=== PATIENT | female | born 1990 | race Caucasian/White ===

== ENCOUNTER 2018-01-04 17:31 | Emergency (ER) | payer OTHER, SELFPAY ==
[2018-01-04 17:53] VITALS: BP 138/86; PULSE 82; RESP 20; TEMP 36.6; O2SAT 98; BMI 31.6
--- NOTE | 2018-01-04 18:05 | HMH.EDUTC ---
[facility] [place] Disposition Clinical Impression: Viral upper respiratory illness Disposition: Home, Self-Care Condition on Discharge: Good Instructions: DI for Viral Upper Respiratory Infection -- Adult Additional Instructions: Follow up with family doctor REturn if needed Over the counter Motrin or Tylenol as needed for pain or fever Follow up with family doctor if worsening of symptoms or no improvement Time of Disposition: 18:24 Medical Decision Making - Medical Records Medical records reviewed: Yes: I reviewed the patient's medical records. Vital Signs: 01/04/18 17:53 Temperature 98 F Temperature Source Temporal Artery Scan Pulse Rate [Right] 82 Respiratory Rate 20 Blood Pressure [Right Arm] 138/86 Blood Pressure Mean [Right Arm] 103 Blood Pressure Source [Right Arm] Automatic Cuff Blood Pressure Position [Right Arm] Sitting 02 Sat by Pulse Oximetry 98 Oxygen Delivery Method Room Air - Dillon Inquiry Pt receiving controlled substance: No Dillon was queried for this patient: No [facility] [place] HPI - General Stated complaint: fever,nausea,chills Mode of Arrival: Ambulatory Source of Information: Patient Limitations: No Limitations Description of Symptoms (Recalled from Triage Doc. by RN): CONGESTION, BODY ACHES, NAUSEA X2 DAYS HEENT Symptoms (Recalled from RN notes): Yes Resp Symptoms (Recalled from RN notes): No Skin Symptoms (Recalled from RN notes): No MS Symptoms (Recalled from RN notes): No Functional Status (Recalled from RN notes): N - History of Present Illness Provider Complaint: Patient states that her family doctor wanted her to come up here to the [facility] to get checked for flu and strep States that she has not felt well now for several day States that symptoms have continued to get worse State that she was worried because she had a small child at home and wanted make sure that she didn't have flu - Related Data Home Medications Medication Instructions Recorded Confirmed Atorvastatin Calcium [Atorvastatin 10 mg PO DAILY 01/04/18 01/04/18 10mg Tab] Escitalopram Oxalate 20 mg PO DAILY 01/04/18 01/04/18 Levothyroxine Sodium 25 mcg PO DAILY 01/04/18 01/04/18 [Levothyroxine 25mcg (0.025mg) Tab] Allergies Allergy/AdvReac Type Severity Reaction Status Date / Time No Known Allergies Allergy Verified 01/04/18 17:57 - Worker's Comp Is this a Worker's Comp case?: No [facility] History I have reviewed the patient's past medical history: Yes - *Social History Alcohol Intake: never - Psychiatric History Expresses thoughts of harming self/others: None Suicide Plan Description: No Plan ROS Obtained: Yes All systems reviewed & no additional complaints - Constitutional Constitutional: Reports chills, Reports fever(s) - ENT Ears, Nose, Mouth, and Throat: Reports nasal congestion, Reports sore throat Physical Exam - General General appearance: alert, in no apparent distress - Expanded ENT Exam Comment: Throat mildly red. no exudate - Respiratory Respiratory exam: Present: normal lung sounds bilaterally. Absent: respiratory distress - Cardiovascular Cardiovascular exam: Present: regular rate, normal rhythm. Absent: JVD - Neurological Exam Neurological exam: Present: alert, oriented X3
--- NOTE | 2018-01-04 18:16 | ED_ITS ---
[facility] [place] [facility] [place] Clinical Impression: Viral upper respiratory illness Disposition: Home, Self-Care Condition on Discharge: Good Instructions: DI for Viral Upper Respiratory Infection -- Adult Additional Instructions: Follow up with family doctor REturn if needed Over the counter Motrin or Tylenol as needed for pain or fever Follow up with family doctor if worsening of symptoms or no improvement Time of Disposition: 18:24 Medical Decision Making - Medical Records Medical records reviewed: Yes: I reviewed the patient's medical records. Vital Signs: 01/04/18 17:53 Temperature 98 F Temperature Source Temporal Artery Scan Pulse Rate [Right] 82 Respiratory Rate 20 Blood Pressure [Right Arm] 138/86 Blood Pressure Mean [Right Arm] 103 Blood Pressure Source [Right Arm] Automatic Cuff Blood Pressure Position [Right Arm] Sitting 02 Sat by Pulse Oximetry 98 Oxygen Delivery Method Room Air - Dillon Inquiry Pt receiving controlled substance: No Dillon was queried for this patient: No [facility] [place] [facility] [place]PI - General Stated complaint: fever,nausea,chills Mode of Arrival: Ambulatory Source of Information: Patient Limitations: No Limitations Description of Symptoms (Recalled from Triage Doc. by RN): CONGESTION, BODY ACHES, NAUSEA X2 DAYS HEENT Symptoms (Recalled from RN notes): Yes Resp Symptoms (Recalled from RN notes): No Skin Symptoms (Recalled from RN notes): No MS Symptoms (Recalled from RN notes): No Functional Status (Recalled from RN notes): N - History of Present Illness Provider Complaint: Patient states that her family doctor wanted her to come up here to the [facility] to get checked for flu and strep States that she has not felt well now for several day States that symptoms have continued to get worse State that she was worried because she had a small child at home and wanted make sure that she didn't have flu - Related Data Home Medications Medication Instructions Recorded Confirmed Atorvastatin Calcium [Atorvastatin 10 mg PO DAILY 01/04/18 01/04/18 10mg Tab] Escitalopram Oxalate 20 mg PO DAILY 01/04/18 01/04/18 Levothyroxine Sodium 25 mcg PO DAILY 01/04/18 01/04/18 [Levothyroxine 25mcg (0.025mg) Tab] Allergies Allergy/AdvReac Type Severity Reaction Status Date / Time No Known Allergies Allergy Verified 01/04/18 17:57 - Worker's Comp Is this a Worker's Comp case?: No [facility] History I have reviewed the patient's past medical history: Yes - *Social History Alcohol Intake: never - Psychiatric History Expresses thoughts of harming self/others: None Suicide Plan Description: No Plan ROS Obtained: Yes All systems reviewed & no additional complaints - Constitutional Constitutional: Reports chills, Reports fever(s) - ENT Ears, Nose, Mouth, and Throat: Reports nasal congestion, Reports sore throat Physical Exam - General General appearance: alert, in no apparent distress - Expanded ENT Exam Comment: Throat mildly red. no exudate - Respiratory Respiratory exam: Present: normal lung sounds bilaterally. Absent: respiratory distress - Cardiovascular Cardiovascular exam: Present: regular rate, normal rhythm. Absent: JVD - Neurological Exam Neurological exam: Present: alert, oriented X3
[2018-01-04 18:32] VITALS: BP 138/86; PULSE 82; RESP 18; TEMP 36.6
[2018-01-04 18:32] LABS: UTC Influenza A Antigen Negative (Negative); UTC Influenza B Antigen Negative (Negative)
== END 2018-01-04 18:33 | disposition home or self-care (01) ==
PROVIDERS: Emergency Provider Nurse Practitioner
DX: J06.9 Acute upper respiratory infection, unspecified (principal)
CPT/HCPCS: 87804; 99202

== ENCOUNTER → 2018-10-31 10:00 | Outpatient (CLI) | payer OTHER, SELFPAY ==
--- NOTE | 2018-10-31 10:01 | US_ITS ---
US transvaginal HISTORY: ITS.REASON: pelvic pain ORDERING PHYSICIAN: Guru Quintero MD PATIENT AGE: 28 years Comparison: None FINDINGS: UTERUS: The uterus measures 7.5 x 4 x 5 cm. The uterus is retroverted. Combined endometrial thickness is 12 mm upper normal. There are bilateral Essure devices present. RIGHT OVARY: 2.8 x 1.8 cm LEFT OVARY: 3.7 x 1.9 cm CUL-DE-SAC FLUID: Minimal cul-de-sac fluid OTHER FINDINGS: There is bilateral ovarian blood flow with no ovarian mass evident. Small follicles are noted IMPRESSION: Uterus is retroverted with endometrial thickness upper limits of normal with minimal amount of cul-de-sac fluid
== END ==
PROVIDERS: PCP Nurse Practitioner Family; Visit Provider Obstetrics & Gynecology
DX: R10.2 Pelvic and perineal pain (principal)
CPT/HCPCS: 76830

== ENCOUNTER 2020-02-28 11:00 | Outpatient (RCR) | payer OTHER, SELFPAY | END 2020-03-31 16:22 | disposition home or self-care (01) | LOC: PT.CARL 11:00 | PROVIDERS: PCP Nurse Practitioner Family; Visit Provider Nurse Practitioner Family | DX: M54.5 Low back pain (principal) | CPT/HCPCS: 97010; 97014; 97110; 97140; 97163; G0283 ==

== ENCOUNTER 2020-10-22 16:11 | Emergency (ER) | payer OTHER, SELFPAY ==
[2020-10-22 16:46] VITALS: BP 127/81; PULSE 79; RESP 17; TEMP 37.1; O2SAT 97; BMI 34.2
--- NOTE | 2020-10-22 17:16 | HMH.EDUTC ---
[facility] [place] Disposition Clinical Impression: Paronychia Disposition: Home, Self-Care Condition on Discharge: Good Instructions: Paronychia, DI for Paronychia, Amoxicillin and Clavulanic Acid Additional Instructions: 1. Soak the infected area in warm water with epson salt twice a day for 20 minutes. 2. After your initial soak, cut the hangnail off. ... 3. Rub Bacitracin on the affected area and around the nail, after healed may rub Vit E oil to prevent another hangnail. 4. Use a topical antibiotic cream on the infected hangnail for a few days Take oral antibiotics as prescribed Return if no improvement or any worsening of symptoms Straight to ER if any life threatening symptoms Prescriptions: Amoxicillin/Potassium Clav [Augmentin 875-125 Tablet] 1 tab PO Q12H 7 Days #14 tab Transmission Status: Pending to [id number] Bacitracin [Bacitracin Oint 0.9GM UDP] 1 each TP TID 10 Days #30 packet Transmission Status: Pending to [id number] Referrals: Sophie Culver [Primary Care Provider] - As needed Time of Disposition: 17:35 Medical Decision Making - Dillon Inquiry Pt receiving controlled substance: No Dillon was queried for this patient: No Vital Signs: 10/22/20 16:46 Temperature 98.7 F Temperature Source Oral Pulse Rate [Left] 79 Respiratory Rate 17 Blood Pressure [Right Arm] 127/81 Blood Pressure Mean [Right Arm] 96 Blood Pressure Source [Right Arm] Automatic Cuff Blood Pressure Position [Right Arm] Sitting 02 Sat by Pulse Oximetry 97 Oxygen Delivery Method Room Air Medical Decision Narrative: needle aspiration done and small amount of pus came from swollen area around fingernail on left 3rd finger, culture obtained and sent to lab [facility] [place] HPI - General Stated complaint: Possible infected middle finger r hand Time Seen by Provider: 10/22/20 17:16 Mode of Arrival: Ambulatory Source of Information: Patient Limitations: No Limitations Description of Symptoms (Recalled from Triage Doc. by RN): left 3rd digit pain and swollen. HEENT Symptoms (Recalled from RN notes): No Resp Symptoms (Recalled from RN notes): No Skin Symptoms (Recalled from RN notes): No MS Symptoms (Recalled from RN notes): Yes Functional Status (Recalled from RN notes): wnl - History of Present Illness Provider Complaint: Patient state that she has been having swelling and redness around her nail area on her left middle finger States that over the last week she has noticed it was red and swollen states that she tried to poke it and get stuff out but nothing come out state that today it was still red and swollen and she looked it up on the internet and it said she may need antibotics - Related Data Previous Rx's Medication Instructions Recorded Amoxicillin/Potassium Clav 1 tab PO Q12H 7 Days #14 tab 10/22/20 [Augmentin 875-125 Tablet] Bacitracin [Bacitracin Oint 0.9GM 1 each TP TID 10 Days #30 packet 10/22/20 UDP] Allergies Allergy/AdvReac Type Severity Reaction Status Date / Time No Known Allergies Allergy Verified 10/22/20 16:52 - Worker's Comp Is this a Worker's Comp case?: No Is this an H Worker's Comp?: No Is this a [place] Worker's Comp?: No [facility] History - Hepatitis A Screen Drug use history?: No High risk sexual behaviors?: No History of sexually transmitted infection?: No Currently employed?: No Childcare worker?: No Do you have indoor plumbing?: Yes Do you have electricity?: Yes Attestation statement:: This patient has been screened for Hepatitis A risk factors. I have reviewed the patient's past medical history: Yes Medical History: Reports:: Anxiety, Depression, Hyperlipidemia Denies:: Cancer, Diabetes Mellitus Type 1, Diabetes Mellitus Type 2, Internal Pacemaker, MRSA Other Medical History: Reports: Hypothyroidism Comment: ANXIETY. DEPRESSION. HYPERLIPIDEMIA Other Surgeries: Yes: Other. No: Pacemaker Amputation: No Fractures: No Comment: EAR SURGERIES, MANY TIMES FROM
[2020-10-22 18:09] VITALS: BP 127/81; PULSE 79; RESP 17; TEMP 37.1; O2SAT 97
== END 2020-10-22 18:10 | disposition home or self-care (01) ==
PROVIDERS: Emergency Provider Nurse Practitioner; PCP Nurse Practitioner Family
DX: L03.012 Cellulitis of left finger (principal); F41.8 Other specified anxiety disorders; E78.5 Hyperlipidemia, unspecified; E03.9 Hypothyroidism, unspecified
CPT/HCPCS: 87070; 87077; 87186; 87205; 99201

== ENCOUNTER → 2020-12-26 17:35 | Outpatient (CLI) | payer OTHER, SELFPAY ==
[2020-12-26 17:48] LABS: Basophils # 0.1 K/mm3 (0-0.2); Basophils % 0.9 % (0.1-2.0); Eosinophils # 0.2 K/mm3 (0.0-0.4); Eosinophils % 2.5 % (0.1-12.0); Hematocrit 45.1 % (37.0-47.0); Hemoglobin 15.1 g/dL (12.2-16.2); Lymphocytes # 2.2 K/mm3 (0.7-4.5); Lymphocytes % 33.4 % (10-50); Mean Corpuscular HGB Conc 33.5 g/dL (31.8-35.4); Mean Corpuscular Hemoglobin 29.1 pg (27.0-31.2); Mean Corpuscular Volume 86.9 fl (81-99); Mean Platelet Volume 7.9 fl (7.4-10.4); Monocytes # 0.3 K/mm3 (0.1-1.0); Monocytes % 4.6 % (1.7-9.3); Neutrophils # 3.9 K/mm3 (1.8-7.8); Neutrophils % 58.7 % (37.0-80.0); Platelet Count 312 K/mm3 (142-424); Red Blood Count 5.18 M/mm3 (4.20-5.40); Red Cell Distribution Width 13.3 % (11.5-17.5); White Blood Count 6.6 K/mm3 (4.8-10.8)
[2020-12-26 18:31] LABS: Alanine Aminotransferase 18 U/L (12-78); Albumin Level 4.8 g/dl (3.5-5.0); Albumin/Globulin Ratio 1.3 (1.1-1.8); Alkaline Phosphatase 93 U/L (38-126); Anion Gap 15.4 mEq/L (5-15); Aspartate Amino Transferase 27 U/L (14-36); Bilirubin,Total 0.5 mg/dl (0.2-1.3); Blood Urea Nitrogen 11 mg/dl (7-17); Carbon Dioxide 26 mmol/L (22.0-30.0); Chloride 103 mmol/L (98-107); Chol/HDL Ratio 4.7 (1-3.5); Cholesterol 227 mg/dl (140-200); Estimated Glomerular Filt Rate 74 ml/min (>60); GFR (African American) 89 ML/MIN (>60); Globulin 3.8 g/dL (1.3-3.2); Glucose 100 mg/dl (74-100); HDL Cholesterol 48 mg/dl (40-60); Potassium 4.4 mmoL/L (3.5-5.1); Sodium 140 mmol/L (136-145); Total Protein,Serum 8.6 g/dl (6.3-8.2); Triglycerides 135 mg/dl (30-150); VLDL Cholesterol 27 mg/dL (0-40)
[2020-12-26 18:41] LABS: Direct LDL Cholesterol 146.95 mg/dL (100-129)
[2020-12-26 18:49] LABS: T4 (Thyroxine) 12.2 ug/dl (5.53-11.0)
[2020-12-26 19:02] LABS: Thyroid Stimulating Hormone 1.84 uIU/mL (0.465-4.68)
[2020-12-26 19:31] LABS: 25-OH Vitamin D, Total 17.2 ng/mL (30-100)
== END ==
PROVIDERS: Visit Provider Emergency Medicine
DX: E03.9 Hypothyroidism, unspecified (principal); E55.9 Vitamin D deficiency, unspecified
CPT/HCPCS: 80053; 80061; 82306; 84436; 84443; 85025

== ENCOUNTER 2021-03-09 09:00 | Outpatient (RCR) | payer OTHER, SELFPAY ==
--- NOTE | 2021-03-02 16:27 | HMH.PTOPEV ---
PT Outpatient Evaluation Rehab PT Outpatient Evaluation Start: 03/02/21 15:48 Freq: Status: Active Protocol: Document 03/02/21 16:08 LAWRENCEBARTOLO (Rec: 03/02/21 16:27 SATHYA [id number]) Electronically Signed By Bashir Messer PT 03/02/21 16:08 Outpatient Therapy Subjective History Subjective History This is the initial Physical Therapy evaluation for Leonor Contreras. Pt is a 30 y/o female referred to PT for c/o LBP. Pt rpeorts she began having pain ~ 1 year ago w/ an insidious onset. Pt reports no trauma to lumbar area, and reports no complaints of radiculopathy. Pt has no c/o paresthesia, weakness, or incontinence of bowel/bladder. Chief Complaint Pain,Stiff Symptom Type Throb,Sharp Symptoms Relieved By Rest/Positioning Symptoms Aggravated By Standing,Bending/Stooping, Physical Activity,Twisting, Walking,Lifting Prior Functional Limitations None Current Functional Limitations Lifting,Housework,Standing, Squatting,Recreation Activity, Walking,Bending/Stooping Symptom Description Intermittent Level of pain today (0-10) 5 Pain scale - at its best (0-10) 0 Pain scale - at its worst (0-10) 9 Lumbopelvic Eval Posture Thoracic Spine Posture Standing Position Increased Kyphosis Lumbar Spine Posture Standing Position Increased Lordosis Palapation tenderness bilateral thoracic spinal tenderness No lumbar spinal tenderness Yes paraspinal tenderness Yes buttock tenderness No Lumbar/Sacral Palpation Findings Tenderness Accessory Movement L3 bilateral L4 bilateral L5 bilateral Range of Motion Lumbar Spine ROM Reason Not Measured Within Functional Limits Manual Muscle Test Bilateral Knee Extension Strength Grade 4 Good Knee Flexion Strength Grade 4 Good Hip Flexion Strength Grade 4 Good Ankle Dorsiflexion Strength Grade 2 Poor Gastronemius/Soleus Strength Grade 5 Normal Special Tests Forward Bending Test- Standing Negative Left,Negative Right Sciatic Nerve Tension Test Negative Left,Negative Right Unilateral Straight Leg Raise (Lasegue) Negative Left,Negative Right Test Sacroiliac Joint Compression Test Negative Left,Negative Right Outpatient Therapy Assessment Impairments Problems/Impairmments Palpation Tenderness,Impair
== END 2021-03-09 09:05 | disposition home or self-care (01) ==
LOC: PT 09:00
PROVIDERS: PCP Emergency Medicine; Visit Provider Emergency Medicine
DX: M54.9 Dorsalgia, unspecified (principal); M54.5 Low back pain
CPT/HCPCS: 97014; 97110; 97163; G0283

== ENCOUNTER 2021-05-22 11:24 | Emergency (ER) | payer OTHER, SELFPAY ==
[2021-05-22 11:28] VITALS: BP 135/88; PULSE 79; RESP 16; TEMP 36.6; O2SAT 100; BMI 34.2
[2021-05-22 11:44] LABS: UTC Strep Screen (Rapid) Positive (Negative)
[2021-05-22 11:47] VITALS: BP 132/86; PULSE 77; RESP 16; TEMP 36.8
--- NOTE | 2021-05-22 11:53 | HMH.EDUTC ---
[facility] [place] Clinical Impression: Strep throat Disposition: Home, Self-Care Condition on Discharge: Good Instructions: Strep Throat, DI for Strep Throat Additional Instructions: Drink plenty of fluids. Take tylenol or ibuprofen for pain or fever. Take the medications as directed. Follow up with your regular doctor. GO TO THE ER FOR ANY WORSENING SYMPTOMS Throw your tooth brush away and get a new one. Prescriptions: Albuterol Sulfate [Albuterol Sulfate Hfa] 2 puffs IH Q6HP PRN 30 Days #1 hfa.aer.ad PRN Reason: Shortness Of Breath [id number] Brompheniramine/Pseudoephed/Dm [Bromfed Dm Cough Syrup] 5 ml PO Q6HP PRN #240 syrup PRN Reason: Cough Transmission Status: [facility] Amoxicillin [Amoxicillin 500mg Tab] 500 mg PO TID 10 Days #30 tab Transmission Status: [facility] Fluticasone Propionate [Flonase 50mcg nasal spray 16gm] 1 spr NS BID 30 Days #1 bottle Transmission [facility]: [id number] Referrals: Kenneth Obrien MD [Primary Care Provider] - Time of Disposition: 12:02 Medical Decision Making - Medical Records Medical records reviewed: No: I reviewed the patient's medical records. - Dillon Inquiry Pt receiving controlled substance: No Vital Signs: 05/22/21 11:28 05/22/21 11:47 Temperature 97.9 F 98.2 F Temperature Source Oral Pulse Rate 77 Pulse Rate [Right] 79 Respiratory Rate 16 16 Blood Pressure 132/86 Blood Pressure [Right Arm] 135/88 Blood Pressure Mean [Right Arm] 103 02 Sat by Pulse Oximetry 100 - Lab Data Lab results reviewed: Yes: I reviewed the patient's lab results. Lab Results 05/22/21 11:41: Strep Scn Rapid Clinic Positive A [facility] [place] HPI - General Stated complaint: sore throat, drainage Time Seen by Provider: 05/22/21 11:53 Mode of Arrival: Ambulatory Source of Information: Patient Limitations: No Limitations Description of Symptoms (Recalled from Triage Doc. by RN): pt c/o fever, chills, sore throat, body aches and tightness in her lungs. pt is afebrile at this time. HEENT Symptoms (Recalled from RN notes): Yes (sore throat) Resp Symptoms (Recalled from RN notes): No Skin Symptoms (Recalled from RN notes): No MS Symptoms (Recalled from RN notes): No Functional Status (Recalled from RN notes): body aches and chills. - History of Present Illness Provider Complaint: She states that she has had a sore throat and chills for the past 2 days. - Related Data Previous Rx's Medication Instructions Recorded trazodone 50 mg tablet 50 mg PO HS #30 tab 12/26/20 cholecalciferol (vitamin D3) 25 25 mcg PO DAILY #90 cap 12/29/20 mcg (1,000 unit) capsule ergocalciferol (vitamin D2) 1,250 1,250 mcg PO WEEKLY #5 cap 12/29/20 mcg (50,000 unit) capsule atorvastatin 10 mg tablet 10 mg PO QHS #90 tab 02/24/21 meloxicam 15 mg tablet See Rx Instructions .ROUTE 03/20/21 .COMPLEX #90 tab clonazepam 0.5 mg tablet 0.5 mg PO BID #60 tab 03/23/21 diclofenac sodium 1 % topical gel 2 g TOPICAL QID #100 g 03/23/21 gabapentin 100 mg capsule 100 mg PO BID 21 Days #42 cap 03/23/21 gabapentin 300 mg capsule 300 mg PO BID 21 Days #42 cap 03/23/21 gabapentin 600 mg tablet 600 mg PO BID 42 Days #84 tab 03/23/21 lidocaine 5 % topical patch 1 patch TOPICAL DAILY #30 each 03/23/21 Albuterol Sulfate [Albuterol 2 puffs IH Q6HP PRN 30 Days #1 05/22/21 Sulfate Hfa] hfa.aer.ad Amoxicillin [Amoxicillin 500mg Tab] 500 mg PO TID 10 Days #30 tab 05/22/21 Brompheniramine/Pseudoephed/Dm 5 ml PO Q6HP PRN #240 syrup 05/22/21 [Bromfed Dm Cough Syrup] Fluticasone Propionate [Flonase 1 spr NS BID 30 Days #1 bottle 05/22/21 50mcg nasal spray 16gm] Allergies Allergy/AdvReac Type Severity Reaction Status Date / Time No Known Allergies Allergy Verified 05/22/21 11:42 - Worker's Comp Is this a Worker's Comp case?: No [facility] History - Hepatitis A Screen Drug use hist
== END 2021-05-22 12:08 | disposition home or self-care (01) ==
PROVIDERS: Emergency Provider Nurse Practitioner Family; PCP Emergency Medicine
DX: J02.0 Streptococcal pharyngitis (principal); F41.8 Other specified anxiety disorders; E78.5 Hyperlipidemia, unspecified
CPT/HCPCS: 87880; 99202; G0463

== ENCOUNTER 2021-06-18 09:01 | Emergency (ER) | payer OTHER, SELFPAY ==
[2021-06-18 09:07] VITALS: BP 143/80; PULSE 85; RESP 17; TEMP 36.6; O2SAT 99; BMI 34.2
[2021-06-18 09:42] LABS: UTC Strep Screen (Rapid) Negative (Negative)
--- NOTE | 2021-06-18 09:42 | HMH.EDUTC ---
[facility] [place] Disposition Clinical Impression: Viral upper respiratory illness Disposition: Home, Self-Care Condition on Discharge: Good Instructions: DI for Viral Upper Respiratory Infection -- Adult, Diarrhea, DI for COVID-19 (Suspected or Confirmed ), Coronavirus Disease 2019, Preventing the Spread of Coronavirus Discharge Instructions Additional Instructions: *Monitor Temp, Over the counter Motrin or Tylenol as directed/as needed Tylenol every 4 hours and Motrin every 6 hours (as long as your family doctor has told you that you can take it) for fever or pain. and straight to ER if unable to lower temp less than 101.0 after medication given *Warm salt water gargles may help to soothe the throat *Throat Lozenges *Warm fluids like tea with honey may help to soothe the throat *Sleep elevated *Humidifier/Vaporizer *Flonase 2 sprays in each nostril daily but be aware that it may take 2-3 days before you notice improvement Your throat swab was sent for culture. Those results are typically sent to your primary care. Be sure to follow up in 2-3 days with your family doctor/primary care physician if no improvement so they can review those result and treat if necessary. If you don?t have a primary care doctor, I recommend you get one but in the mean time, you will have to return to a walk in clinic Follow up IMMEDIATELY for new or worsening symptoms or no Noticeable improvement over the next 48-72 hours. 911 for difficulty breathing or swallowing You were tested for today for COVID19 your test result should be back in the next 24-48 hours, you may call to the [facility] to see if your test results are back in the next 48 hours [phone] [facility] hours are 9am-9pm You was given a handout with instructions for Self Quarantine and Self isolation for while you wait on test results and what to do if they are positive If you are positive the Health Dept will be contacting you also Drink extra fluids with and between meals. If you have difficulty drinking, try very small amounts of water or suck on ice chips. ? Avoid fruit juices, as these do not replace minerals and can actually increase diarrhea. ? Children and adults can use sports drinks to replenish electrolytes. Younger children and infants should use products formulated for children, like oral rehydration solutions. ? Eat food in small amounts and let your stomach recover. ? Get lots of rest. You may feel tired or weak. ? No greasy or fried foods for the next 24-48 hours BRAT diet Bananas Rice Apples and Paia ? Make sure to drink plenty of liquids ? Return if needed ? Straight to ER if any life threatening symptoms ? You was given an outpatient order for diarrhea panel, please collect specimen and bring back to outpatient lab then call back to the [facility] or follow up with family doctor for results ? Follow up with family doctor in the next 48-72 hours if no improvement or any worsening of symptoms Referrals: Kenneth Obrien MD [Primary Care Provider] - As needed Forms: Work/School Release Time of Disposition: 09:48 Medical Decision Making - Dillon Inquiry Pt receiving controlled substance: No Dillon was queried for this patient: No Vital Signs: 06/18/21 09:07 Temperature 97.8 F Temperature Source Oral Pulse Rate [Left] 85 Respiratory Rate 17 Blood Pressure [Right Arm] 143/80 H Blood Pressure Mean [Right Arm] 101 02 Sat by Pulse Oximetry 99 - Lab Data Lab results reviewed: Yes: I reviewed the patient's lab results. Lab Results 06/18/21 09:25: Strep Scn Rapid Clinic Negative Orders (Tests/Meds): ORDERS Category Date Time Status Covid-19 Nasal PCR ([facility] Routine Lab 06/18/21 09:36 Ordered Strep Screen Confirmation Stat Micro 06/18/21 09:25 Received [facility] [place] HPI - General Stated complaint: fever, runny nose, sore throat,diarrhea, sob Time Seen by Provider: 06/18/21 09:42 Mode of Arrival: Ambulatory Source of Information: Patient Limitations: No Limitations Description
[2021-06-18 10:09] VITALS: BP 139/82; PULSE 81; RESP 16; TEMP 36.6
== END 2021-06-18 10:09 | disposition home or self-care (01) ==
PROVIDERS: Emergency Provider Nurse Practitioner; PCP Emergency Medicine
DX: J06.9 Acute upper respiratory infection, unspecified (principal); F41.8 Other specified anxiety disorders; E78.5 Hyperlipidemia, unspecified; E03.9 Hypothyroidism, unspecified; Z20.822 Contact with and (suspected) exposure to COVID-19
CPT/HCPCS: 87880; 99203; G0463; U0003

== ENCOUNTER → 2021-07-01 07:57 | Outpatient (CLI) | payer OTHER, SELFPAY ==
--- NOTE | 2021-07-01 07:57 | US_ITS ---
PROCEDURE: US GALLBLADDER CLINICAL INDICATION: RUQP Right upper quadrant pain COMPARISON: No exams were available for comparison FINDINGS: Pancreas: Unremarkable pancreas Liver: Unremarkable. There is appropriate direction of blood flow within a non dilated portal vein. Right kidney: Unremarkable appearing. No hydronephrosis. Gallbladder: No stones are evident. There is no gallbladder wall. Minimal amount of sludge in the gallbladder. Thickening. Common duct is normal in diameter. IMPRESSION: Minimal sludge in the gallbladder otherwise negative right upper quadrant ultrasound Dictated by: Sunny Spencer MD 07/02/2021 20:21 Sunny Spencer MD in [place] 07/02/2021 20:21
== END ==
PROVIDERS: PCP Emergency Medicine; Visit Provider Emergency Medicine
DX: R10.11 Right upper quadrant pain (principal)
CPT/HCPCS: 76705

== ENCOUNTER → 2021-08-26 13:23 | Outpatient (CLI) | payer OTHER, SELFPAY ==
--- NOTE | 2021-08-26 13:28 | CA_ITS ---
APPROVED REPORT EXAM: Comprehensive 2D, Doppler, and color-flow Echocardiogram Special Effects Technician: Lakshmi Vargas CRT Ht: 5 ft 8 in Wt: 222lbs BSA: 2.14 BP: 132/80 mmHg Indications: Chest Pain, Murmur, Hyperlipidemia, Hypertension/HDD, Covid + // 2D Dimensions LVOT 1.94 cm (M/F) 1.5-2.5 LA Volume 35.60 mL LA Volume Index 16.60 mL/m2 (M/F) 16-34 M-Mode Dimensions RVDd 2.30 cm (0.9-2.6) LA Diam 2.86 cm (1.9-4.0) LVDd 5.57 cm (3.5-5.7) Ao Diam 3.36 cm (2.0-3.7) LVDs 3.87 cm (3.5-5.7) IVSd 1.07 cm (0.6-1.1) PWd 0.40 cm (0.6-1.1) EF (Teich) 57.40% FS 30.50% EDV (Teich) 151.80 mL TAPSE 1.79 (<1.7) ESV (Teich) 64.70 mL LV Diastology E Decel Time 150.00 (160-240 msec) E/A Ratio 1.08 MED E' 6.90 (< 7 cm/sec) MED A' 11.70 cm/s E'/MED E' Ratio 11.20 (>14) LAT E' 12.10 (<10 cm/sec) LAT A' 8.60 cm/s E/LAT E' Ratio 6.39 (>14) Aortic Valve AO Peak GR. 7.10 mmHg Mitral Valve MV E Max Demetrius. 77.00 (40-130 cm/s) MV A Velocity 72.00 (40-130 cm/s) E/A Ratio 1.08 MV Decel. Time 150.00 (160-240 ms) MV PHT 44.00 ms Pulmonary Valve PV Peak Velocity 102.00 (50-150 cm/s) Tricuspid Valve TR P. Velocity 166.00 cm/s RAP Estimate 10.00 mmHg RVSP 21.10 mmHg Left Ventricle Left atrium is normal size, left ventricle is normal size, there is no concentric left ventricular hypertrophy, visually estimated ejection fraction 55% with no regional wall motion abnormality, diastolic parameters are within normal range. Right Ventricle Right atrium and right ventricle are normal size and contractility. Aortic Valve Aortic valve is grossly normal, there is no aortic stenosis or aortic insufficiency. Mitral Valve Mitral valve grossly normal, there is trace mitral regurgitation. Tricuspid Valve Tricuspid grossly normal, there is trace tricuspid regurgitation, calculated right ventricular systolic pressure is within normal range. Pulmonic Valve Pulmonic valve is poorly visualized. Great Vessels Aortic root is normal size. Inferior vena cava is normal size with normal inspiratory collapse. Pericardium No significant pericardial effusion noted. Conclusion 1. Normal left ventricular size, preserved left ventricular systolic function, visually estimated ejection fraction 55% with no regional wall motion abnormality, diastolic parameters are within normal range. 2. Trace mitral and tricuspid regurgitation, calculated right ventricular systolic pressure within normal range. 3. No significant pericardial effusion noted. 4. Inferior vena cava is normal size with normal inspiratory collapse. Electronically signed by : Vincent Duran MD 08/27/2021 14:30:04
== END ==
PROVIDERS: PCP Emergency Medicine; Visit Provider Emergency Medicine
DX: R01.1 Cardiac murmur, unspecified (principal)
CPT/HCPCS: 93306

== ENCOUNTER 2021-09-09 18:51 | Emergency (ER) | payer OTHER, SELFPAY ==
[2021-09-09 20:23] VITALS: BP 00/00; PULSE 0; RESP 0; TEMP -17.7; TEMP 0; O2SAT 0
== END 2021-09-09 20:28 | disposition left against medical advice (07) ==
PROVIDERS: Emergency Provider Student in an Organized Health Care Education/Training Program; PCP Emergency Medicine
DX: Z53.21 Procedure and treatment not carried out due to patient leaving prior to being seen by health care provider (principal)
CPT/HCPCS: 99211

== ENCOUNTER → 2021-09-14 09:11 | Outpatient (CLI) | payer OTHER, SELFPAY | PROVIDERS: Visit Provider Surgery | DX: Z01.812 Encounter for preprocedural laboratory examination (principal); Z11.52 Encounter for screening for COVID-19; Z13.810 Encounter for screening for upper gastrointestinal disorder | CPT/HCPCS: C9803; U0003; U0005 ==

== ENCOUNTER 2021-09-16 09:31 | Day surgery (SDC) | payer OTHER, SELFPAY ==
[2021-09-14 09:17] VITALS: BMI 34.7
[2021-09-16] VITALS (7 sets, daily range): BP systolic 100–123; BP diastolic 64–73; PULSE 66–78; RESP 14–18; TEMP 36.3–36.4; O2SAT 96–100
--- NOTE | 2021-09-16 09:47 | HMH.ANESCL ---
[facility] Anesthesia Checklist - Patient Identification Patient Identification: Arm Band - Structural Data Admitted From: Home Planned Operative Procedure/s: EGD Consent for Planned Operative Procedure(s) Verified: Yes - NPO Status Verified Time NPO: 00:00 - Airway Assessment C-Spine Mobility Assessed: Yes TMJ Mobility Assessed: Yes Dentition: Edentulous - Neurological Assessment Level of Consciousness: Awake Hx Seizures: No Numbness or tingling in extremities: No - Anesthesia Plan Anesthesia Risk discussed: Yes Anesthesia Plan: Verified ASA Class: II Anesthesia Type: MAC [facility] History I have reviewed the patient's past medical history: Yes Medical History: Reports:: Anxiety, Depression, Hyperlipidemia Denies:: Cancer, Diabetes Mellitus Type 1, Diabetes Mellitus Type 2, Internal Pacemaker, MRSA *Have you ever received a pneumonia vaccine?: No *Have you received a flu vaccine this season?: No Other Medical History: Reports: Hypothyroidism Anesthesia experience/problems:: None Laterality Cases: Bilateral: Myringotomy (Ear Tubes) Other Surgeries: Yes: Other. No: Pacemaker Amputation: No Fractures: No - *Social History Last grade of school completed: High school graduate Smoking Status: Never smoker Alcohol Intake: never Alcohol Intake Frequency:: other Substance Use Type: denies use *Occupational Status:: unemployed Housing: house Household Members: spouse, children *Travel in the last 8 weeks: None - Psychiatric History Pschychiatric History:: Reports:: Anxiety, Depression Family Hx:: No significant family history
[2021-09-16 09:59] LABS: Urine Pregnancy, HCG Qual. Negative (Negative)
--- NOTE | 2021-09-16 10:30 | HMH.SCOPE ---
- Procedure: Date: 09/16/21 Patient Date of :: 1990 Procedure Performed:: Esophagogastroduodenoscopy with biopsies Indications:: Patient is a 30-year-old female from [place] with history of anxiety, hyperlipidemia, pain referred by Dr. Obrien for EGD. She states that she has a very longstanding history of reflux type symptoms and heartburn . She describes relatively frequent burning in the throat and chest area. She states I keep heartburn . This is however been progressive recently. She did undergo an ultrasound of the gallbladder on 07/02/2021 which revealed minimal sludge. She has had some difficulty swallowing pills. She does not seem to have any dysphagia with food however. She has been started on a medication which says may help somewhat occasionally but some days it does not seem to have any effect at all. She was sent for EGD. Performing Provider:: Geovanni Ruiz MD Referring Provider:: Chapito Obrien MD Sedation:: MAC sedation Procedure:: Patient was taken to endoscopy procedure room. She was positioned in lateral decubitus position. Adequate intravenous sedation was achieved with anesthesia titration of propofol. Olympus endoscope was inserted via the oropharynx. Esophagus was cannulated. Endoscope was advanced. Esophagus appeared overall relatively unremarkable. Gastroesophageal junction was encountered at approximately 35 cm from the incisors. Stomach was cannulated and insufflated. Retroflexion revealed no evidence of any hiatal hernia. She had a couple of areas of minor focal gastritis. Pylorus was traversed. Duodenal bulb and duodenal sweep appeared unremarkable. Endoscope was withdrawn into the gastric lumen. Gastric antral mucosal biopsies obtained for CLOtest for H. pylori. A couple biopsies were obtained of the areas of punctate to gastritis. A Hemoclip was deployed in the prepyloric location to ensure hemostasis. Endoscope was withdrawn into the distal esophagus. There was some minor inflammation at the gastroesophageal junction and biopsy was obtained. Biopsies were obtained of the distal esophagus to rule out microscopic esophagitis. Endoscope was withdrawn. Findings:: Overall relatively unremarkable upper endoscopy. Gastroesophageal junction at 35 cm from the incisors 2 tiny punctate areas of minor gastropathy/gastritis Minimal evidence of focal esophagitis of the gastroesophageal junction, biopsied Recommendations:: Plan to follow-up on histopathology. It is possible that some of her symptoms are functional anxiety related. Complications:: None immediately apparent Estimated blood obtained (mL): 3
== END 2021-09-16 11:26 | disposition home or self-care (01) ==
LOC: OUTP 09:32
PROVIDERS: PCP Emergency Medicine; Visit Provider Surgery
PROC: 0DJ08ZZ Inspection of Upper Intestinal Tract, Via Natural or Artificial Opening Endoscopic (ICD-10-PCS; CPT 43235; principal; 2021-09-16 10:30)
DX: K31.9 Disease of stomach and duodenum, unspecified (principal); K20.80 Other esophagitis without bleeding; F41.9 Anxiety disorder, unspecified; F32.9 Major depressive disorder, single episode, unspecified; E78.5 Hyperlipidemia, unspecified; E03.9 Hypothyroidism, unspecified; Z96.22 Myringotomy tube(s) status; Z79.899 Other long term (current) drug therapy
CPT/HCPCS: 43239; 81025; 87339; J2704

== ENCOUNTER 2022-02-16 20:12 | Emergency (ER) | payer OTHER, SELFPAY ==
[2022-02-16 21:40] LABS: UTC Influenza A Antigen Positive (Negative)
[2022-02-16 21:41] VITALS: PULSE 78; RESP 21; TEMP 37; O2SAT 99; BMI 35.2
[2022-02-16 21:41] LABS: UTC Influenza B Antigen Negative (Negative)
--- NOTE | 2022-02-16 21:46 | HMH.EDUTC ---
[facility] [place] Clinical Impression: Influenza Disposition: Home, Self-Care Condition on Discharge: Good Instructions: Influenza, DI for Influenza -- Adult Additional Instructions: ? Start Tamiflu today if you are going to take it. Discussed risk and possible benefits. ? Too late to start Tamiflu. Most effective when started within 48 hours of symptoms onset ? Lots of rest ? Increase Fluids water, Gatorade, powerade, pedialyte,if /toddler/child ? Alternate Tylenol and / or ibuprofen as discussed for fever, aches, chills Follow up IMMEDIATELY with your family doctor for new or worsening Symptoms OR no noticeable improvement over the next 48-72 hours, 911 for difficulty or breathing ? You or your child area contagious until no fever, aches, chills for 24 hours with medication for symptoms ? Help Prevent the spread of influenza: ? Wash your hands often. Use soap and water. Wash your hands after you use the bathroom, change a child's diapers, or sneeze. Wash your hands before you prepare or eat food. Use gel hand cleanser that has 60% alcohol, when soap and water are not available. Do not touch your eyes, nose, or mouth unless you have washed your hands first. ? Cover your mouth when you sneeze or cough. Cough into a tissue or the bend of your arm. If you use a tissue, throw it away immediately and wash your hands. ? Clean shared items with a germ-killing yarn cleaner. Clean table surfaces, doorknobs, and light switches. Do not share towels, silverware, and dishes with people who are sick. Wash bed sheets, towels, silverware, and dishes with soap and water. ? Wear a mask over your mouth and nose if you are sick. The face mask may help protect others from becoming infected with the flu. Wear the mask when in common areas of your home or if you seek care with a healthcare provider. ? Stay away from others if you are sick. Stay at home until 24 hours after your fever and symptoms are gone. Prescriptions: Oseltamivir Phosphate [Tamiflu 75mg Capsule] 75 mg PO BID #10 cap Transmission Status: Pending to [facility] Referrals: Kenneth Obrien MD [Primary Care Provider] - As needed Time of Disposition: 22:03 Medical Decision Making - Dillon Inquiry Pt receiving controlled substance: No [place] was queried for this patient: No Vital Signs: 02/16/22 21:41 02/16/22 21:51 Temperature 98.6 F 98.6 F Temperature Source Oral Pulse Rate 78 Pulse Rate [Right] 78 Respiratory Rate 21 21 Blood Pressure 140/81 02 Sat by Pulse Oximetry 99 - Lab Data Lab results reviewed: Yes: I reviewed the patient's lab results. Lab Results 02/16/22 21:14: Influenza Type A Ag Positive A, Influenza Type B Ag Negative [facility] - General Stated complaint: sore throat, body aches, congestion Time Seen by Provider: 02/16/22 21:46 Mode of Arrival: Ambulatory Source of Information: Patient Limitations: No Limitations Description of Symptoms (Recalled from Triage Doc. by RN): pt c/o body aches, sore throat, nasal drainage/congestion x3 days. HEENT Symptoms (Recalled from RN notes): Yes Resp Symptoms (Recalled from RN notes): No Skin Symptoms (Recalled from RN notes): No MS Symptoms (Recalled from RN notes): No Functional Status (Recalled from RN notes): wnl - History of Present Illness Provider Complaint: Patient states that she baby sit a child over the weekend that just tested postive for the flu States that yesterday she started feeling bad and was having body aches, chills, nasal congestion and scratchy throat so today she was still not feeling well so she came in - Related Data Previous Rx's Medication Instructions Recorded famotidine 40 mg tablet 40 mg PO DAILY #30 tab 10/05/21 sucralfate 1 gram tablet 1 g PO QID #90 tab 10/19/21 atorvastatin 10 mg tablet 10 mg PO DAILY #90 tab 11/25/21 cholecalciferol (vitamin D3) 1,250 1,250 mcg PO WEEKLY #12 cap 11/25/21 mcg (50,000 unit) capsule cholecalciferol (vitamin D3) 25 25 mc
[2022-02-16 21:51] VITALS: BP 140/81; PULSE 78; RESP 21; TEMP 37
== END 2022-02-16 22:07 | disposition home or self-care (01) ==
PROVIDERS: Emergency Provider Nurse Practitioner; PCP Emergency Medicine
DX: J10.1 Influenza due to other identified influenza virus with other respiratory manifestations (principal); F41.8 Other specified anxiety disorders; E78.5 Hyperlipidemia, unspecified; Z79.899 Other long term (current) drug therapy
CPT/HCPCS: 87804; 99212; G0463

== ENCOUNTER → 2022-03-08 08:40 | Outpatient (CLI) | payer OTHER, SELFPAY ==
[2022-03-08 15:13] LABS: Amphetamine/Metha Screen,Urine Negative ng/ml (<1000)
[2022-03-08 15:15] LABS: Barbiturates Screen,Urine Negative ng/ml (<200)
[2022-03-08 15:16] LABS: Benzodiazepines Screen,Urine Negative ng/ml (<200)
[2022-03-08 15:17] LABS: Cannabinoid Screen,Urine Positive ng/ml (<50); Methadone Screen,Urine Negative ng/ml (<300)
[2022-03-08 15:18] LABS: Cocaine Screen,Urine Negative ng/ml (<300); Opiate Screen,Urine Negative ng/ml (<300)
[2022-03-08 15:20] LABS: Phencyclidine Screen,Urine Negative ng/ml (<25)
== END ==
PROVIDERS: Visit Provider Emergency Medicine
DX: Z79.899 Other long term (current) drug therapy (principal)
CPT/HCPCS: 80305

== ENCOUNTER → 2022-05-25 20:49 | Outpatient (CLI) | payer OTHER, SELFPAY ==
[2022-05-25 21:15] LABS: Adenovirus,PCR Not Detected (NotDetected); Bordetella Pertussis Not Detected (NotDetected); Chlamydophila Pneumoniae, PCR Not Detected (NotDetected); Coronavirus 19, PCR Not Detected (NotDetected); Coronavirus 229E Not Detected (NotDetected); Coronavirus NL63 Not Detected (NotDetected); Coronavirus OC43 Not Detected (NotDetected); Coronovirus HKU1,PCR Not Detected (NotDetected); Human Metapneumovirus Not Detected (NotDetected); Influenza A, PCR Not Detected (NotDetected); Influenza AH1, 2009 Not Detected (NotDetected); Influenza AH1, PCR Not Detected (NotDetected); Influenza AH3,PCR Not Detected (NotDetected); Influenza B, PCR Not Detected (NotDetected); Mycoplasma Pneumoniae, PCR Not Detected (NotDetected); Parainfluenza 1, PCR Not Detected (NotDetected); Parainfluenza 2, PCR Not Detected (NotDetected); Parainfluenza 3, PCR Not Detected (NotDetected); Parainfluenza 4, PCR Not Detected (NotDetected); Respiratory Syncytial Virus Not Detected (NotDetected); Rhinovirus/Enterovirus Not Detected (NotDetected)
== END ==
PROVIDERS: PCP Nurse Practitioner Family; Visit Provider Nurse Practitioner Family
DX: Z20.822 Contact with and (suspected) exposure to COVID-19 (principal); J02.9 Acute pharyngitis, unspecified; R05.8 Other specified cough
CPT/HCPCS: 87581; 87632; 87798; C9803; U0003; U0005

== ENCOUNTER 2022-09-23 20:21 | Emergency (ER) | payer OTHER, SELFPAY ==
[2022-09-23 20:23] VITALS: BP 166/102; PULSE 79; RESP 18; TEMP 36.5; O2SAT 100; BMI 35.2
[2022-09-23 20:45] LABS: Microscopic, Urine URINE MICROSCOPIC (MICROSCOPIC)
[2022-09-23 20:51] LABS: Basophils # 0.1 K/mm3 (0-0.2); Basophils % 1.4 % (0.1-2.0); Eosinophils # 0.2 K/mm3 (0.0-0.4); Eosinophils % 1.9 % (0.1-12.0); Hematocrit 43.1 % (37.0-47.0); Lymphocytes % 37.7 % (10-50); Mean Corpuscular HGB Conc 32.5 g/dL (31.8-35.4); Mean Corpuscular Hemoglobin 28.8 pg (27.0-31.2); Mean Corpuscular Volume 88.8 fl (81-99); Monocytes # 0.3 K/mm3 (0.1-1.0); Monocytes % 3.8 % (1.7-9.3); Neutrophils # 4.3 K/mm3 (1.8-7.8); Neutrophils % 55.2 % (37.0-80.0); Platelet Count 262 K/mm3 (142-424); Red Blood Count 4.85 M/mm3 (4.20-5.40); Red Cell Distribution Width 13.5 % (11.5-17.5); White Blood Count 7.9 K/mm3 (4.8-10.8)
[2022-09-23 21:00] LABS: Bilirubin,Urine Negative (Negative); Blood, Urine 3+ (Negative); Glucose,Urine (UA) Negative (Negative); Ketones,Urine Negative (Negative); Leukocyte Esterase,Urine Negative (Negative); Nitrate,Urine Negative (Negative); Protein,Urine 1+ (Negative); Specific Gravity, Urine >= 1.030 (1.005-1.030); Urobilinogen,Urine 0.2 EU/dl (0.2)
[2022-09-23 21:01] LABS: Chloride 103 mmol/L (98-107); Potassium 3.4 mmoL/L (3.5-5.1); Sodium 143 mmol/L (136-145)
[2022-09-23 21:03] LABS: Appearance,Urine Slightly Cloudy (Clear); Color,Urine Amber (Yellow)
[2022-09-23 21:03] LABS: Alanine Aminotransferase 20 U/L (12-78); Aspartate Amino Transferase 25 U/L (14-36); Blood Urea Nitrogen 8 mg/dl (7-17); Creatinine Clearance Estimated 146 mL/min (50-200); Estimated Glomerular Filt Rate 73 ml/min (>60); GFR (African American) 88 ML/MIN (>60)
[2022-09-23 21:04] LABS: Albumin Level 4.8 g/dl (3.5-5.0); Albumin/Globulin Ratio 1.3 (1.1-1.8); Alkaline Phosphatase 89 U/L (38-126); Bilirubin,Total 0.4 mg/dl (0.2-1.3); Calcium 9.9 mg/dl (8.4-10.2); Carbon Dioxide 25 mmol/L (22.0-30.0); Globulin 3.8 g/dL (1.3-3.2); Glucose 98 mg/dl (74-100); Lipase 48 U/L (23-300); Total Protein,Serum 8.6 g/dl (6.3-8.2)
[2022-09-23 21:06] LABS: Anion Gap 18.4 mEq/L (5-15)
--- NOTE | 2022-09-23 21:10 | CT_ITS ---
PROCEDURE INFORMATION: Exam: CT Abdomen And Pelvis With Contrast Exam date and time: 09/23/2022 9:32 PM Age: 31 years old Clinical indication: Abdominal pain; Additional info: Abd pain, bloody stools TECHNIQUE: Imaging protocol: Computed tomography of the abdomen and pelvis with contrast. Radiation optimization: All CT scans at this facility use at least one of these dose optimization techniques: automated exposure control; mA and/or kV adjustment per patient size (includes targeted exams where dose is matched to clinical indication); or iterative reconstruction. Contrast material: ISOVUE; Contrast volume: 75 ml; Contrast route: IV; COMPARISON: US GALLBLADDER 07/01/2021 8:35 AM FINDINGS: Liver: Normal. No mass. Gallbladder and bile ducts: Normal. No calcified stones. No ductal dilation. Pancreas: Normal. No ductal dilation. Spleen: Normal. No splenomegaly. Adrenal glands: Normal. No mass. Kidneys and ureters: Left hydronephrosis secondary to a 2 mm calculus in the proximal ureter. Low attenuation renal lesions measuring up to 7 mm in diameter are incompletely characterized, but are likely cysts. No followup imaging is warranted. Stomach and bowel: Unremarkable. No obstruction. No mucosal thickening. Appendix: Unremarkable appendix. Intraperitoneal space: Amount of free fluid in the pelvis, which is likely physiologic. Vasculature: Unremarkable. No abdominal aortic aneurysm. Lymph nodes: Unremarkable. No enlarged lymph nodes. Urinary bladder: Unremarkable as visualized. Reproductive: Bilateral tubal ligation. There is a recently ruptured left ovarian dominant follicle. Bones/joints: Unremarkable. No acute fracture. Soft tissues: Tiny fat containing umbilical hernia. Other findings: Stigmata of old granulomatous disease. IMPRESSION: 1. Left hydronephrosis secondary to a 2 mm calculus in the proximal ureter. 2. There is a recently ruptured left ovarian dominant follicle. COMMENTS: Consistent with the [employer]'s Incidental Findings Committee white paper (J Am Joaquin Radiol 2018): Any incidental renal lesion less than 1 cm or classified as too small to characterize, or any incidental cystic renal lesion characterized as simple-appearing, is likely benign. No follow-up imaging is recommended for these lesions per consensus recommendations based on imaging criteria.
[2022-09-23 21:20] LABS: HCG Qualitative, Serum Negative (Negative)
[2022-09-23 22:07] LABS: RBC,Urine TNTC #/hpf (0-3); WBC,Urine Occasional #/hpf (0-3)
--- NOTE | 2022-09-23 22:26 | PC.NURSE ---
Rechecked pt condition. Pt complains of pain. notified.
[2022-09-23 22:30] VITALS: BP 129/74; PULSE 69; O2SAT 100
--- NOTE | 2022-09-23 22:47 | US_ITS ---
PROCEDURE INFORMATION: Exam: US Duplex Artery or Vein of the Abdominal and/or Reproductive Organs, Limited Ovaries Exam date and time: 09/23/2022 11:18 PM Age: 31 years old Clinical indication: Abdominal pain; Lower abdomen; Additional info: Lower abd pain, ovarian follicle left TECHNIQUE: Imaging protocol: Real-time duplex ultrasound scan of the arterial or venous flow with garza scale, color Doppler flow and spectral waveform analysis with image documentation. Limited duplex exam focused on the ovaries. Duplex exam was performed to evaluate for torsion and other vascular conditions. COMPARISON: CT ABDOMEN PELVIS W CON 09/23/2022 9:32 PM FINDINGS: Right ovary/adnexa: Unremarkable right ovarian arterial waveforms. Left ovary/adnexa: Unremarkable left ovarian arterial waveforms. IMPRESSION: No evidence of ovarian torsion. PROCEDURE INFORMATION: Exam: US Pelvis, Transvaginal Exam date and time: 09/23/2022 11:18 PM Age: 31 years old Clinical indication: Abdominal pain; Lower abdomen; Additional info: Lower abd pain, ovarian follicle left TECHNIQUE: Imaging protocol: Real-time transvaginal pelvic ultrasound with image documentation. Transvaginal imaging was used for better evaluation of the endometrium, adnexa, and/or cervix. COMPARISON: TRANVAG US transvaginal 10/31/2018 10:28 AM FINDINGS: Uterus: The endometrium is 12 mm in thickness. Uterus measures 8.1 x 3.9 x 4.9 cm. Right ovary/adnexa: The right ovary measures 3.2 x 2.1 x 1.8 cm. Unremarkable right ovarian arterial waveforms. Left ovary/adnexa: The left ovary measures 4.4 x 2.3 x 2.1 cm. Unremarkable left ovarian arterial waveforms. Intraperitoneal space: There is a small amount of free fluid in the pelvis. IMPRESSION: There is a small amount of free fluid in the pelvis. In correlation with CT images, this is most likely due to a recently ruptured left ovarian dominant follicle.
--- NOTE | 2022-09-23 22:49 | PC.NURSE ---
paged securities trader lobby concierge for US at this time
--- NOTE | 2022-09-23 23:13 | PC.NURSE ---
Pt gone to RAD for U/S
--- NOTE | 2022-09-23 23:14 | HMH.EDABDPAI ---
Discharge Plan Disposition Patient Disposition: Home, Self-Care Condition: Good Prescriptions Prescriptions: New ketorolac 10 mg tablet 10 mg PO Q8H 5 Days Qty: 15 0RF tamsulosin [Flomax] 0.4 mg capsule 0.4 mg PO DAILY Qty: 30 0RF ondansetron 4 mg tablet,disintegrating 4 mg PO DAILY Qty: 30 0RF No Action gabapentin 600 mg tablet 600 mg PO TID Qty: 90 2RF clonazepam 0.5 mg tablet 0.5 mg PO TID Qty: 90 2RF famotidine [Pepcid] 40 mg tablet 40 mg PO DAILY Qty: 30 5RF cholecalciferol (vitamin D3) 1,250 mcg (50,000 unit) capsule 1,250 mcg PO WEEKLY Qty: 12 0RF cholecalciferol (vitamin D3) 25 mcg (1,000 unit) capsule 25 mcg PO DAILY Qty: 90 0RF sucralfate 1 gram tablet 1 g PO QID Qty: 90 2RF atorvastatin 10 mg tablet 10 mg PO DAILY Qty: 90 2RF albuterol sulfate 90 mcg/actuation HFA aerosol inhaler 1 inh IH QID PRN (Reason: shortness of breath or wheezing) Qty: 8.5 0RF Referrals Follow up/Referrals: Marva Abel MD [Referring] - See instructions (Ruptured Cyst and concern for possible PCOS ) Layne Ramirez MD [Primary Care Provider] - See instructions José Miguel Quiñones MD [Staff Physician] - See instructions (kidney stone ) Activity Restrictions/Add. Instructions Additional Instructions/Restrictions: Please follow-up with your primary care physician in the next 2 to 3 days for further management. You have also been referred to urology given your 2 mm kidney stone. Please take Toradol and Flomax as prescribed. You have also been referred to gynecology given concern for ruptured cyst. Please return to the emergency department for any concerning symptoms or worsening pain. Clinical Impressions Clinical Impression: Ovarian cyst rupture, Kidney stone Instructions Patient Instructions: DI for Kidney Stones, DI for Ovarian Cyst Print Language Print Language: Khmer Discharge ED Provider: Layne Ramirez Abdominal Pain HPI General Chief Complaint: Abdominal Pain Stated Complaint: abd pain, vomitting Time Seen by Provider: 09/23/22 23:14 Mode of Arrival: Ambulatory Source of Information: Patient Limitations: No Limitations Description of Symptoms (Recalled from ER Triage Doc. by RN): pt c/o LLQ pain v/d and bright red blood in stool that started yesterday History of Present Illness HPI narrative: Mrs. Greer is a 31-year-old female with no significant past medical history presenting to the emergency department with left sided abdominal pain which started acute onset yesterday evening. Patient describes left mid quadrant pain which radiates into the groin. She also reports bright red blood in her stool yesterday which has greatly improved. Does report constipation which is now turned into diarrhea. Denies any vaginal discharge. Last menstrual 2 weeks prior. Denies any cough, fevers or other infectious-like symptoms. Denies any recent trauma to the abdomen. MD complaint: abdominal pain Onset (ago): day(s) Consistency: intermittent Severity: moderate Quality: cramping Radiation: suprapubic Relieving factors: nothing Exacerbating factors: nothing Related Data Previous Rx's Medication Instructions Recorded sucralfate 1 gram tablet 1 g PO QID #90 tabs 10/19/21 cholecalciferol (vitamin D3) 1,250 1,250 mcg PO WEEKLY #12 caps 05/25/22 mcg (50,000 unit) capsule cholecalciferol (vitamin D3) 25 25 mcg PO DAILY #90 caps 05/25/22 mcg (1,000 unit) capsule famotidine 40 mg tablet (Pepcid) 40 mg PO DAILY #30 tabs 05/25/22 atorvastatin 10 mg tablet 10 mg PO DAILY #90 tabs 06/02/22 albuterol sulfate 90 mcg/actuation 1 inh inhalation QID PRN shortness 07/08/22 aerosol inhaler of breath or wheezing #8.5 grams clonazepam 0.5 mg tablet 0.5 mg PO TID mood #90 tabs 07/23/22 gabapentin 600 mg tablet 600 mg PO TID Pain #90 tabs 07/23/22 ketorolac 10 mg tablet 10 mg PO Q8H 5 days #15 tabs 09/24/22 ondansetron 4 mg disintegrating 4 mg PO DAILY #30 tabs 09/24/22 tablet
--- NOTE | 2022-09-23 23:38 | PC.NURSE ---
Pt back from RAD
[2022-09-24 00:38] VITALS: BP 133/72; PULSE 72; RESP 16; TEMP 36.7; O2SAT 98
== END 2022-09-24 00:49 | disposition home or self-care (01) ==
PROVIDERS: Emergency Provider Student in an Organized Health Care Education/Training Program; PCP Student in an Organized Health Care Education/Training Program
DX: N83.202 Unspecified ovarian cyst, left side (principal); N20.0 Calculus of kidney
CPT/HCPCS: 74177; 76830; 80053; 81001; 83605; 83690; 84703; 85025; 96374; 99284; Q9967

== ENCOUNTER 2022-10-22 14:01 | Emergency (ER) | payer OTHER, SELFPAY ==
[2022-10-22 15:37] VITALS: BP 130/96; PULSE 91; RESP 16; TEMP 36.5; O2SAT 99; BMI 34.1
--- NOTE | 2022-10-22 15:44 | EXP.UTC ---
Discharge Plan Disposition Patient Disposition: Home, Self-Care Condition: Good Prescriptions Prescriptions: New benzonatate [benzonatate] 100 mg capsule 100 mg PO TIDP PRN (Reason: Cough) Qty: 30 0RF oseltamivir [Tamiflu] 75 mg capsule 75 mg PO BID Qty: 10 0RF methylprednisolone 4 mg Tablets,Dose Pack 4 mg PO DIRECTED Qty: 21 0RF No Action famotidine [Pepcid] 40 mg tablet 40 mg PO DAILY Qty: 30 5RF cholecalciferol (vitamin D3) 1,250 mcg (50,000 unit) capsule 1,250 mcg PO WEEKLY Qty: 12 0RF cholecalciferol (vitamin D3) 25 mcg (1,000 unit) capsule 25 mcg PO DAILY Qty: 90 0RF ondansetron HCl 4 mg tablet 4 mg PO TID PRN (Reason: nausea and vomiting) Qty: 21 0RF clonazepam 0.5 mg tablet 0.5 mg PO TID Qty: 90 2RF gabapentin 600 mg tablet 600 mg PO TID Qty: 90 2RF hydrocodone-acetaminophen 5-325 mg tablet 1 tab PO BID Qty: 14 0RF sucralfate 1 gram tablet 1 g PO QID Qty: 90 2RF atorvastatin 10 mg tablet 10 mg PO DAILY Qty: 90 2RF albuterol sulfate 90 mcg/actuation HFA aerosol inhaler 1 inh IH QID PRN (Reason: shortness of breath or wheezing) Qty: 8.5 0RF ondansetron 4 mg tablet,disintegrating 4 mg PO DAILY Qty: 30 0RF Referrals Follow up/Referrals: Kenneth Obrien MD [Primary Care Provider] - See instructions Activity Restrictions/Add. Instructions Additional Instructions/Restrictions: Drink plenty of fluids. Take tylenol or ibuprofen for pain or fever. Take the medications as directed. Follow up with your regular doctor. GO TO THE ER FOR ANY WORSENING SYMPTOMS Clinical Impressions Clinical Impression: Influenza A Instructions Patient Instructions: DI for Influenza -- Adult, Oseltamivir Discharge ED Provider: Robe Lemus [facility] General Stated complaint: Headache, fever, diarreah, sore throat Mode of Arrival: Ambulatory Source of Information: Patient Limitations: No Limitations Time Seen by Provider: 10/22/22 15:44 Description of Symptoms (Recalled from Triage Doc. by RN): pt comes in with c/o sore throat, headache. symptoms began this am. HEENT Symptoms (Recalled from RN notes): Yes Resp Symptoms (Recalled from RN notes): No Skin Symptoms (Recalled from RN notes): No MS Symptoms (Recalled from RN notes): No Functional Status (Recalled from RN notes): n/a History of Present Illness Provider Complaint: She states that for the past 2 days she has had sore throat, fever, chills, and malaise. Related Data Previous Rx's Medication Instructions Recorded sucralfate 1 gram tablet 1 g PO QID #90 tabs 10/19/21 cholecalciferol (vitamin D3) 1,250 1,250 mcg PO WEEKLY #12 caps 05/25/22 mcg (50,000 unit) capsule cholecalciferol (vitamin D3) 25 25 mcg PO DAILY #90 caps 05/25/22 mcg (1,000 unit) capsule famotidine 40 mg tablet (Pepcid) 40 mg PO DAILY #30 tabs 05/25/22 atorvastatin 10 mg tablet 10 mg PO DAILY #90 tabs 06/02/22 albuterol sulfate 90 mcg/actuation 1 inh inhalation QID PRN shortness 07/08/22 aerosol inhaler of breath or wheezing #8.5 grams ondansetron 4 mg disintegrating 4 mg PO DAILY #30 tabs 09/24/22 tablet hydrocodone 5 mg-acetaminophen 325 1 tab PO BID #14 tabs 09/28/22 mg tablet clonazepam 0.5 mg tablet 0.5 mg PO TID mood #90 tabs 10/19/22 gabapentin 600 mg tablet 600 mg PO TID Pain #90 tabs 10/19/22 ondansetron HCl 4 mg tablet 4 mg PO TID PRN nausea and 10/19/22 vomiting #21 tabs benzonatate 100 mg capsule 100 mg PO TIDP PRN Cough #30 caps 10/22/22 methylprednisolone 4 mg tablets in 4 mg PO DIRECTED #21 tabs 10/22/22 a dose pack oseltamivir 75 mg capsule (Tamiflu) 75 mg PO BID #10 caps 10/22/22 Allergies Allergy/AdvReac Type Severity Reaction Status Date / Time No Known Allergies Allergy Verified 10/22/22 15:40 Worker's Comp Is this a Worker's Comp case?: No PFSH PFSH Disclaimer: The information contained in this section may have been updated after the patient was seen,
[2022-10-22 15:52] LABS: UTC Influenza A Antigen Positive (Negative); UTC Influenza B Antigen Negative (Negative); UTC Strep Screen (Rapid) Negative (Negative)
[2022-10-22 16:22] VITALS: BP 130/96; PULSE 91; RESP 16; TEMP 36.5
== END 2022-10-22 16:25 | disposition home or self-care (01) ==
PROVIDERS: Emergency Provider Nurse Practitioner Family; PCP Emergency Medicine
DX: J10.1 Influenza due to other identified influenza virus with other respiratory manifestations (principal)
CPT/HCPCS: 87804; 87880; 99212; G0463

== ENCOUNTER → 2022-11-02 10:52 | Outpatient (CLI) | payer OTHER, SELFPAY ==
[2022-11-02 10:57] LABS: Adenovirus F 40/41, stool Not Detected (NotDetected); Astrovirus Not Detected (NotDetected); Campylobacter Not Detected (NotDetected); Clostridium Difficile A/B, PCR Not Detected (NotDetected); Cryptosporidium Not Detected (NotDetected); Cyclospora Cayetanesis Not Detected (NotDetected); Entamoeba histolytica Not Detected (NotDetected); Enteroaggregative E coli Not Detected (NotDetected); Enteropathogenic E coli Not Detected (NotDetected); Enterotoxigenic E coli Not Detected (NotDetected); Giardia lamblia Not Detected (NotDetected); Norovirus Not Detected (NotDetected); Plesimonas Shigalloides, PCR Not Detected (NotDetected); Rotavirus A Not Detected (NotDetected); Salmonella, PCR Not Detected (NotDetected); Sapovirus Not Detected (NotDetected); Shiga-like toxin E coli Not Detected (NotDetected); Shigella Enterovasive E coli Not Detected (NotDetected); Vibrio Cholerae Not Detected (NotDetected); Vibrio, PCR Not Detected (NotDetected); Yersinia Entercolitica, PCR Not Detected (NotDetected)
== END ==
PROVIDERS: PCP Emergency Medicine; Visit Provider Emergency Medicine
DX: K52.89 Other specified noninfective gastroenteritis and colitis (principal)
CPT/HCPCS: 87507

== ENCOUNTER 2022-12-31 14:52 | Emergency (ER) | payer OTHER, SELFPAY ==
[2022-12-31 15:10] VITALS: BP 141/84; PULSE 61; RESP 20; TEMP 36.6; O2SAT 99; BMI 34.4
--- NOTE | 2022-12-31 15:22 | EXP.UTC ---
Discharge Plan Disposition Patient Disposition: Home, Self-Care Condition: Good Prescriptions Prescriptions: New pseudoephedrine HCl [12 Hour Decongestant] 120 mg Tablet Extended Release 120 mg PO Q12H Qty: 20 0RF No Action famotidine [Pepcid] 40 mg tablet 40 mg PO DAILY Qty: 30 5RF cholecalciferol (vitamin D3) 1,250 mcg (50,000 unit) capsule 1,250 mcg PO WEEKLY Qty: 12 0RF cholecalciferol (vitamin D3) 25 mcg (1,000 unit) capsule 25 mcg PO DAILY Qty: 90 0RF clonazepam 0.5 mg tablet 0.5 mg PO TID Qty: 90 2RF gabapentin 600 mg tablet 600 mg PO TID Qty: 90 2RF sulfamethoxazole-trimethoprim 800-160 mg tablet 1 tab PO Q12H atorvastatin 10 mg tablet 10 mg PO DAILY Qty: 90 2RF albuterol sulfate 90 mcg/actuation HFA aerosol inhaler 1 inh IH QID PRN (Reason: shortness of breath or wheezing) Qty: 8.5 0RF ondansetron HCl 4 mg tablet 4 mg PO TID PRN (Reason: nausea and vomiting) Qty: 21 0RF Referrals Follow up/Referrals: Kenneth Obrien MD [Primary Care Provider] - See instructions Clinical Impressions Clinical Impression: Viral upper respiratory illness Instructions Patient Instructions: DI for Viral Upper Respiratory Infection -- Adult Discharge ED Provider: Aimee Osorio [facility] [place] HPI General Stated complaint: MCCRAY, sore throat, fever Time Seen by Provider: 12/31/22 15:22 History of Present Illness Provider Complaint: Cough, congestion, headache, stomach ache, possible fever since yesterday. No vomiting or diarrhea. Related Data Home Medications Medication Instructions Recorded Confirmed sulfamethoxazole 800 1 tab PO Q12H 11/02/22 11/02/22 mg-trimethoprim 160 mg tablet Previous Rx's Medication Instructions Recorded cholecalciferol (vitamin D3) 1,250 1,250 mcg PO WEEKLY #12 caps 05/25/22 mcg (50,000 unit) capsule cholecalciferol (vitamin D3) 25 25 mcg PO DAILY #90 caps 05/25/22 mcg (1,000 unit) capsule famotidine 40 mg tablet (Pepcid) 40 mg PO DAILY #30 tabs 05/25/22 atorvastatin 10 mg tablet 10 mg PO DAILY #90 tabs 06/02/22 albuterol sulfate 90 mcg/actuation 1 inh inhalation QID PRN shortness 07/08/22 aerosol inhaler of breath or wheezing #8.5 grams clonazepam 0.5 mg tablet 0.5 mg PO TID mood #90 tabs 10/19/22 gabapentin 600 mg tablet 600 mg PO TID Pain #90 tabs 10/19/22 ondansetron HCl 4 mg tablet 4 mg PO TID PRN nausea and 12/31/22 vomiting #21 tabs pseudoephedrine HCl 120 mg 120 mg PO Q12H #20 tabs 12/31/22 tablet,extended release (12 Hour Decongestant ER) Allergies Allergy/AdvReac Type Severity Reaction Status Date / Time No Known Allergies Allergy Verified 10/22/22 15:40 [facility] Disclaimer: The information contained in this section may have been updated after the patient was seen, as this information can be updated by other users. Social History Smoking Status: Never smoker second hand exposure: No alcohol intake: never substance use type: denies use current occupational status: unemployed Travel in the last 8 weeks: None household members: spouse and children housing: house current occupational exposures/hazards: No caffeine: Yes ROS Obtained: Yes All systems reviewed & no additional complaints except as documented Constitutional Constitutional: Reports fever(s) and Reports malaise ENT Ears, Nose, Mouth, and Throat: Reports sinus pain and Reports sore throat Physical Exam General General appearance: alert and in no apparent distress Head Head exam: atraumatic, normocephalic and normal inspection Eye Eye exam: Present normal appearance, PERRL and EOMI ENT ENT exam: Present normal exam, normal oropharynx, mucous membranes moist, TM's normal bilaterally and normal external ear exam Neck Neck exam: Present normal inspection, full ROM and trachea midline; Absent meningismus or lymphadenopathy Chest Chest inspection: Present n
[2022-12-31 15:36] LABS: UTC Strep Screen (Rapid) Negative (Negative)
[2022-12-31 15:50] VITALS: BP 141/84; PULSE 61; RESP 20; TEMP 36.6; O2SAT 99
== END 2022-12-31 15:50 | disposition home or self-care (01) ==
PROVIDERS: Emergency Provider Physician Assistant; PCP Emergency Medicine
DX: J06.9 Acute upper respiratory infection, unspecified (principal)
CPT/HCPCS: 87880; 99212; 99213; G0463

== ENCOUNTER 2023-02-11 11:46 | Emergency (ER) | payer OTHER, SELFPAY ==
[2023-02-11 11:55] VITALS: BP 147/100; PULSE 66; RESP 22; TEMP 37; O2SAT 100; BMI 33.5
--- NOTE | 2023-02-11 12:08 | EXP.UTC ---
Discharge Plan Disposition Patient Disposition: Home, Self-Care Condition: Good Prescriptions Prescriptions: New azithromycin [Zithromax] 250 mg tablet 250 mg PO UD DOSE PK Qty: 6 0RF Rx Instructions: Take two (2) tablets today, then one (1) tablet days #2 thru #5 [id number] [Bromfed DM] 2-30-10 mg/5 mL Syrup 5 ml PO Q6H PRN (Reason: Cough) Qty: 240 0RF No Action famotidine [Pepcid] 40 mg tablet 40 mg PO DAILY Qty: 30 5RF cholecalciferol (vitamin D3) 1,250 mcg (50,000 unit) capsule 1,250 mcg PO WEEKLY Qty: 12 0RF cholecalciferol (vitamin D3) 25 mcg (1,000 unit) capsule 25 mcg PO DAILY Qty: 90 0RF gabapentin 600 mg tablet 600 mg PO QID Qty: 120 2RF clonazepam 0.5 mg tablet 0.5 mg PO TID Qty: 90 2RF atorvastatin 10 mg tablet 10 mg PO DAILY Qty: 90 2RF albuterol sulfate 90 mcg/actuation HFA aerosol inhaler 1 inh IH QID PRN (Reason: shortness of breath or wheezing) Qty: 8.5 0RF Referrals Follow up/Referrals: Kenneth Obrien MD [Primary Care Provider] - See instructions Activity Restrictions/Add. Instructions Additional Instructions/Restrictions: Drink plenty of fluids. Take tylenol or ibuprofen for pain or fever. Take the medications as directed. Follow up with your regular doctor. GO TO THE ER FOR ANY WORSENING SYMPTOMS Clinical Impressions Clinical Impression: Bronchitis, Pharyngitis Stand Alone Forms Stand Alone Forms: Work/School Release Instructions Patient Instructions: DI for Pharyngitis/Tonsillopharyngitis -- Adult, DI for Acute Bronchitis Discharge ED Provider: Robe Lemus [facility] [place] [facility] [place] General Stated complaint: chest congestion, sore throat, MCCRAY Time Seen by Provider: 02/11/23 12:07 History of Present Illness Provider Complaint: She states that for the past 5 days she has had productive cough with yellowish sputum, sinus congestion, and a scratchy sore throat. Related Data Previous Rx's Medication Instructions Recorded cholecalciferol (vitamin D3) 1,250 1,250 mcg PO WEEKLY #12 caps 05/25/22 mcg (50,000 unit) capsule cholecalciferol (vitamin D3) 25 25 mcg PO DAILY #90 caps 05/25/22 mcg (1,000 unit) capsule famotidine 40 mg tablet (Pepcid) 40 mg PO DAILY #30 tabs 05/25/22 atorvastatin 10 mg tablet 10 mg PO DAILY #90 tabs 06/02/22 albuterol sulfate 90 mcg/actuation 1 inh inhalation QID PRN shortness 07/08/22 aerosol inhaler of breath or wheezing #8.5 grams clonazepam 0.5 mg tablet 0.5 mg PO TID mood #90 tabs 01/31/23 gabapentin 600 mg tablet 600 mg PO QID Pain #120 tabs 01/31/23 azithromycin 250 mg tablet 250 mg PO UD DOSE PK #6 tabs 02/11/23 (Zithromax) [id number] 5 ml PO Q6H PRN Cough #240 mL 02/11/23 2 mg-30 mg-10 mg/5 mL oral syrup (Bromfed DM) Allergies Allergy/AdvReac Type Severity Reaction Status Date / Time No Known Allergies Allergy Verified 01/31/23 13:15 [facility] Disclaimer: The information contained in this section may have been updated after the patient was seen, as this information can be updated by other users. Social History Smoking Status: Never smoker second hand exposure: No alcohol intake: never substance use type: denies use current occupational status: unemployed Travel in the last 8 weeks: None household members: spouse and children housing: house current occupational exposures/hazards: No caffeine: Yes ROS Obtained: Yes All systems reviewed & no additional complaints except as documented Constitutional Constitutional: Reports poor appetite Eyes Eyes: Reports system reviewed and no additional complaints, except as documented ENT Ears, Nose, Mouth, and Throat: Reports as per HPI Cardiovascular Cardiovascular: Reports system reviewed and no additional complaints, except as documented and Denies chest pain Respiratory Respiratory: Denies shortness of breath,
[2023-02-11 12:11] LABS: UTC Strep Screen (Rapid) Negative (Negative)
[2023-02-11 12:30] VITALS: BP 147/100; PULSE 66; RESP 22; TEMP 37; O2SAT 100
[2023-02-11 12:55] LABS: Apearance,Urine Clear (Clear); Bilirubin,Urine Negative (Negative); Blood, Urine 2+ (Negative); Color,Urine Yellow (Yellow); Glucose,Urine (UA) Negative (Negative); Ketones,Urine Negative (Negative); Protein,Urine Negative (Negative); Specific Gravity, Urine 1.025 (1.005-1.030); UTC Leukocyte Esterase,Urine Negative (Negative); UTC Nitrate,Urine Negative (Negative); Urobilinogen,Urine 0.2 EU/dl (0.2)
== END 2023-02-11 13:05 | disposition home or self-care (01) ==
PROVIDERS: Emergency Provider Nurse Practitioner Family; PCP Emergency Medicine
DX: J20.9 Acute bronchitis, unspecified (principal); J02.9 Acute pharyngitis, unspecified; R51.9 Headache, unspecified
CPT/HCPCS: 81003; 87086; 87880; 99212; 99214; G0463

== ENCOUNTER → 2023-03-04 13:48 | Outpatient (CLI) | payer OTHER, SELFPAY ==
[2023-03-04 14:27] LABS: Basophils % 0.4 % (0.1-2.0); Eosinophils # 0.1 K/mm3 (0.0-0.4); Eosinophils % 1.2 % (0.1-12.0); Hematocrit 41.6 % (37.0-47.0); Hemoglobin 13.6 g/dL (12.2-16.2); Lymphocytes # 2.6 K/mm3 (0.7-4.5); Lymphocytes % 37.4 % (10-50); Mean Corpuscular HGB Conc 32.7 g/dL (31.8-35.4); Mean Corpuscular Hemoglobin 27.9 pg (27.0-31.2); Mean Corpuscular Volume 85.4 fl (81-99); Mean Platelet Volume 8.2 fl (7.4-10.4); Monocytes # 0.3 K/mm3 (0.1-1.0); Monocytes % 3.8 % (1.7-9.3); Neutrophils # 3.9 K/mm3 (1.8-7.8); Neutrophils % 57.2 % (37.0-80.0); Platelet Count 263 K/mm3 (142-424); Red Blood Count 4.87 M/mm3 (4.20-5.40); Red Cell Distribution Width 13.4 % (11.5-17.5); White Blood Count 6.8 K/mm3 (4.8-10.8)
[2023-03-04 14:32] LABS: Alanine Aminotransferase 15 U/L (12-78); Albumin Level 4.4 g/dl (3.5-5.0); Albumin/Globulin Ratio 1.4 (1.1-1.8); Alkaline Phosphatase 72 U/L (38-126); Anion Gap 8.1 mEq/L (5-15); Aspartate Amino Transferase 22 U/L (14-36); Bilirubin,Total 0.6 mg/dl (0.2-1.3); Blood Urea Nitrogen 9 mg/dl (7-17); Calcium 8.6 mg/dl (8.4-10.2); Carbon Dioxide 25 mmol/L (22.0-30.0); Chloride 105 mmol/L (98-107); Chol/HDL Ratio 4.5 (1-3.5); Cholesterol 193 mg/dl (140-200); Estimated Glomerular Filt Rate 73 ml/min (>60); GFR (African American) 88 ML/MIN (>60); Globulin 3.1 g/dL (1.3-3.2); Glucose 91 mg/dl (74-100); HDL Cholesterol 43 mg/dl (40-60); Potassium 4.1 mmoL/L (3.5-5.1); Sodium 134 mmol/L (136-145); Total Protein,Serum 7.5 g/dl (6.3-8.2); Triglycerides 143 mg/dl (30-150); VLDL Cholesterol 29 mg/dL (0-40)
[2023-03-04 14:43] LABS: Direct LDL Cholesterol 119.69 mg/dL (100-129)
[2023-03-04 14:47] LABS: 25-OH Vitamin D, Total 18.4 ng/mL (30-100)
[2023-03-04 15:23] LABS: Hemoglobin A1C 5.1 % (4.0-6.0)
== END ==
PROVIDERS: PCP Nurse Practitioner Family; Visit Provider Nurse Practitioner Family
DX: R53.83 Other fatigue (principal); I10 Essential (primary) hypertension; E55.9 Vitamin D deficiency, unspecified; N39.0 Urinary tract infection, site not specified
CPT/HCPCS: 80053; 80061; 82306; 83036; 84443; 85025; 87086

== ENCOUNTER 2023-04-15 12:51 | Emergency (ER) | payer OTHER, SELFPAY ==
[2023-04-15 13:05] VITALS: BP 141/83; PULSE 86; RESP 21; TEMP 37.1; O2SAT 99; BMI 34.8
[2023-04-15 13:17] LABS: UTC Strep Screen (Rapid) Positive (Negative)
--- NOTE | 2023-04-15 13:23 | EXP.UTC ---
Discharge Plan Disposition Patient Disposition: Home, Self-Care Condition: Good Prescriptions Prescriptions: New azithromycin [Zithromax TRI-TATE] 500 mg tablet 500 mg PO DAILY 3 Days Qty: 3 0RF No Action gabapentin 600 mg tablet 600 mg PO QID Qty: 120 2RF clonazepam 0.5 mg tablet 0.5 mg PO TID Qty: 90 2RF atorvastatin 10 mg tablet 10 mg PO HS Rx Instructions: TAKE 1 TABLET BY MOUTH EVERY DAY famotidine [Pepcid] 40 mg tablet 40 mg PO DAILY Referrals Follow up/Referrals: Kenneth Obrien MD [Primary Care Provider] - See instructions Activity Restrictions/Add. Instructions Additional Instructions/Restrictions: Take all antibiotics as prescribed until gone Replace toothbrush F/U if not improving Clinical Impressions Clinical Impression: Strep pharyngitis Instructions Patient Instructions: DI for Strep Throat Discharge ED Provider: Aimee Osorio [facility] [place] HPI General Stated complaint: sore throat, fever/chills Mode of Arrival: Ambulatory Source of Information: Patient Limitations: No Limitations Time Seen by Provider: 04/15/23 13:25 Description of Symptoms (Recalled from Triage Doc. by RN): PATIENT C/O SORE THROAT, HEADACHE, FEVER, CHILLS AND DIARRHEA X 4 DAYS HEENT Symptoms (Recalled from RN notes): Yes Resp Symptoms (Recalled from RN notes): No Skin Symptoms (Recalled from RN notes): No MS Symptoms (Recalled from RN notes): No Functional Status (Recalled from RN notes): WNL History of Present Illness Provider Complaint: Fever, chills, headache, sore throat, body aches, diarrhea X 4 days. Home COVID test negative. Onset (ago): day(s) (4) Relieving factors: none Exacerbating factors: none Associated symptoms: fever/chills and headaches Treatments prior to arrival: NSAID Related Data Home Medications Medication Instructions Recorded Confirmed atorvastatin 10 mg tablet 10 mg PO HS Cholesterol 04/15/23 04/15/23 famotidine 40 mg tablet (Pepcid) 40 mg PO DAILY Acid reflux 04/15/23 04/15/23 Previous Rx's Medication Instructions Recorded clonazepam 0.5 mg tablet 0.5 mg PO TID mood #90 tabs 01/31/23 gabapentin 600 mg tablet 600 mg PO QID Pain #120 tabs 01/31/23 azithromycin 500 mg tablet 500 mg PO DAILY 3 days #3 tabs 04/15/23 (Zithromax TRI-TATE) Allergies Allergy/AdvReac Type Severity Reaction Status Date / Time No Known Allergies Allergy Verified 03/04/23 11:48 Worker's Comp Is this a Worker's Comp case?: No PFSH [facility] Disclaimer: The information contained in this section may have been updated after the patient was seen, as this information can be updated by other users. Social History Smoking Status: Never smoker second hand exposure: No alcohol intake: never substance use type: denies use current occupational status: unemployed Travel in the last 8 weeks: None household members: spouse and children housing: house current occupational exposures/hazards: No caffeine: Yes ROS Obtained: Yes All systems reviewed & no additional complaints except as documented Constitutional Constitutional: Reports fever(s) and Reports headache(s) ENT Ears, Nose, Mouth, and Throat: Reports headache(s) and Reports sore throat Neurologic Neurologic: Reports headache(s) Physical Exam General General appearance: alert and in no apparent distress Head Head exam: atraumatic, normocephalic and normal inspection Eye Eye exam: Present normal appearance, PERRL and EOMI ENT ENT exam: Present normal exam, normal oropharynx, mucous membranes moist, TM's normal bilaterally and normal external ear exam Expanded ENT Exam Throat exam: Present tonsillar erythema, tonsillomegaly and tonsillar exudate Neck Neck exam: Present normal inspection, full ROM and trachea midline; Absent meningismus or lymphadenopathy Chest Chest inspection: Present normal inspection and symmetric chest wall rise; Absent te
[2023-04-15 13:29] VITALS: BP 141/83; PULSE 86; RESP 21; TEMP 37.1; O2SAT 99
== END 2023-04-15 13:44 | disposition home or self-care (01) ==
PROVIDERS: Emergency Provider Physician Assistant; PCP Emergency Medicine
DX: J02.0 Streptococcal pharyngitis (principal); R50.9 Fever, unspecified; R51.9 Headache, unspecified; R19.7 Diarrhea, unspecified
CPT/HCPCS: 87880; 96372; 99212; 99214; G0463; J0561

== ENCOUNTER → 2023-04-29 23:13 | Outpatient (CLI) | payer OTHER, SELFPAY | PROVIDERS: PCP Emergency Medicine; Visit Provider Emergency Medicine | DX: J02.9 Acute pharyngitis, unspecified (principal) ==

== ENCOUNTER → 2023-06-29 11:54 | Outpatient (CLI) | payer OTHER, SELFPAY ==
--- NOTE | 2023-06-29 11:58 | CT_ITS ---
FINAL REPORT TECHNIQUE: Axial images through the abdomen and pelvis were performed without contrast. This study was performed with techniques to keep radiation doses as low as reasonably achievable, (ALARA). Individualized dose reduction techniques using automated exposure control or adjustment of mA and/or kV according to the patient's size were employed. CLINICAL HISTORY: right flank pain COMPARISON: 09/23/2022 FINDINGS: ABDOMEN: The lung bases are clear. The heart size is normal. Limited images of the liver are unremarkable. The gallbladder is present. The spleen is normal. No adrenal mass is identified. The aorta is normal in caliber. There is no significant free fluid or adenopathy. There is a less than 1 cm fat attenuation mass in the anterior left mid kidney consistent within angiomyolipoma. There is no nephrolithiasis. There is no hydronephrosis. PELVIS: The appendix is normal. The urinary bladder is unremarkable. There is a small amount of pelvic free fluid, may be physiologic or reactive. IMPRESSION: No hydronephrosis or nephrolithiasis. Reviewed, Interpreted and Dictated by Geovanni Fraser III, MD Transcribed by Urmila Reid Authenticated and . [facility]
== END ==
PROVIDERS: PCP Emergency Medicine; Visit Provider Emergency Medicine
DX: R10.9 Unspecified abdominal pain (principal)
CPT/HCPCS: 74176; 87086

== ENCOUNTER 2023-09-16 11:57 | Emergency (ER) | payer OTHER, SELFPAY ==
[2023-09-16 11:58] VITALS: BP 162/116; PULSE 67; RESP 16; TEMP 36.9; O2SAT 99; BMI 29.0
--- NOTE | 2023-09-16 12:35 | HMH.EDGENADL ---
Discharge Plan Disposition Patient Disposition: Home, Self-Care Prescriptions Prescriptions: New ondansetron 4 mg tablet,disintegrating 4 mg PO Q8H PRN (Reason: nausea and vomiting) 4 Days Qty: 12 0RF No Action ergocalciferol (vitamin D2) [Vitamin D2] 1,250 mcg (50,000 unit) capsule 1,250 mcg PO WEEKLY clonazepam 0.5 mg tablet 0.5 mg PO TID Qty: 90 2RF gabapentin 600 mg tablet 600 mg PO QID Qty: 120 2RF cholecalciferol (vitamin D3) 25 mcg (1,000 unit) capsule See Rx Instructions .ROUTE .COMPLEX Qty: 90 0RF Dose Instruction: TAKE 1 CAPSULE BY MOUTH ONCE DAILY Rx Instructions: TAKE 1 CAPSULE BY MOUTH ONCE DAILY atorvastatin 10 mg tablet See Rx Instructions .ROUTE .COMPLEX Qty: 90 0RF Dose Instruction: TAKE 1 TABLET BY MOUTH EVERY DAY Rx Instructions: TAKE 1 TABLET BY MOUTH EVERY DAY famotidine [Pepcid] 40 mg tablet 40 mg PO DAILY Referrals Follow up/Referrals: Kenneth Obrien MD [Primary Care Provider] - See instructions Activity Restrictions/Add. Instructions Additional Instructions/Restrictions: At this time it was felt you are safe to be discharged home. If new or worsening symptoms please do not hesitate to return the emergency department. If symptoms persist please follow-up with your family doctor as you are able. Please take medications as prescribed. Clinical Impressions Clinical Impression: Abdominal pain, Diarrhea Instructions Patient Instructions: DI for Urinary Tract Infection (UTI), DI for Urinary Tract Infection in Children Discharge ED Provider: Rocky Cornejo General Adult HPI General Chief complaint: Urogenital-Female Stated complaint: UTI AND DIARRHEA Time Seen by Provider: 09/16/23 12:15 Mode of Arrival: Ambulatory Source of Information: Patient Limitations: No Limitations Description of Symptoms (Recalled from ER Triage Doc. by RN): PT REPORTS URGENCY AND FREQUENCY, LEFT SIDED LOW BACK PAIN. RECENTLY TREATED FROM UTI, FEELS LIKE SYMPTOMS DIDN'T COMPLETELY RESOLVE History of Present Illness HPI narrative: Patient is a 32-year-old female with past medical history of recently diagnosed urinary tract infection status post antibiotics who presents emergency department for evaluation of left flank pain and dysuria. Patient was placed on antibiotic that he cannot recall the name for which she completed the course. She has persistent urinary frequency and left flank and low back pain causing her to present here for continued evaluation. Last menstrual period 3 days ago. No other acute complaints at this time. Related Data Home Medications Medication Instructions Recorded Confirmed famotidine 40 mg tablet (Pepcid) 40 mg PO DAILY Acid reflux 04/15/23 07/28/23 ergocalciferol (vitamin D2) 1,250 1,250 mcg PO WEEKLY 04/29/23 07/28/23 mcg (50,000 unit) capsule (Vitamin D2) Previous Rx's Medication Instructions Recorded clonazepam 0.5 mg tablet 0.5 mg PO TID mood #90 tabs 07/28/23 gabapentin 600 mg tablet 600 mg PO QID Pain #120 tabs 07/28/23 cholecalciferol (vitamin D3) 25 See Rx Instructions .Route 08/29/23 mcg (1,000 unit) capsule .COMPLEX #90 caps atorvastatin 10 mg tablet See Rx Instructions .Route 09/12/23 .COMPLEX #90 tabs ondansetron 4 mg disintegrating 4 mg PO Q8H PRN nausea and 09/16/23 tablet vomiting 4 days #12 tabs Allergies Allergy/AdvReac Type Severity Reaction Status Date / Time No Known Allergies Allergy Verified 07/28/23 11:17 [facility] Disclaimer: The information contained in this section may have been updated after the patient was seen, as this information can be updated by other users. Social History Smoking Status: Never smoker second hand exposure: No alcohol intake: never substance use type: denies use current occupational status: unemployed Travel in the last 8 weeks: None household members: spouse and chil
--- NOTE | 2023-09-16 12:35 | PC.NURSE ---
DR VICTOR AT BEDSIDE
--- NOTE | 2023-09-16 12:37 | CT_ITS ---
FINAL REPORT TECHNIQUE: Axial images through the abdomen and pelvis were performed without contrast. This study was performed with techniques to keep radiation doses as low as reasonably achievable, (ALARA). Individualized dose reduction techniques using automated exposure control or adjustment of mA and/or kV according to the patient's size were employed. CLINICAL HISTORY: hematuria, L flank pain COMPARISON: 06/29/2023 FINDINGS: ABDOMEN: The lung bases are clear. The heart size is normal. Limited images of the liver are unremarkable. The spleen is normal. No adrenal mass is identified. The aorta is normal in caliber. There is no significant free fluid or adenopathy. There is a small angiomyolipoma of the left kidney, stable. There is no nephrolithiasis. There is no hydronephrosis. PELVIS: The appendix is normal. There is descending colon wall thickening, may represent colitis. There are postoperative changes in the pelvis. Small right ovarian cyst is identified. The urinary bladder is unremarkable. There is no significant free fluid or adenopathy. IMPRESSION: Findings may represent colitis. Reviewed, Interpreted and Dictated by Geovanni Fraser III, MD Transcribed by Urmila Reid Authenticated and [facility]
[2023-09-16 12:38] LABS: Microscopic, Urine URINE MICROSCOPIC (MICROSCOPIC)
[2023-09-16 12:39] LABS: Appearance,Urine CLEAR (Clear); Blood, Urine Negative (Negative); Color,Urine YELLOW (Yellow); Glucose,Urine (UA) Negative (Negative); Ketones,Urine 1+ (Negative); Leukocyte Esterase,Urine Negative (Negative); Nitrate,Urine Negative (Negative); PH,Urine 5.5 (5.0-8.5); Protein,Urine TRACE (Negative); Specific Gravity, Urine >= 1.030 (1.005-1.030)
[2023-09-16 12:41] LABS: Urine Pregnancy, HCG Qual. Negative (Negative)
[2023-09-16 12:48] LABS: Bilirubin,Urine Negative (Negative)
[2023-09-16 12:51] LABS: Basophils # 0.1 K/mm3 (0-0.2); Basophils % 1.1 % (0.1-2.0); Eosinophils # 0.1 K/mm3 (0.0-0.4); Eosinophils % 1.7 % (0.1-12.0); Hematocrit 41.3 % (37.0-47.0); Hemoglobin 14.5 g/dL (12.2-16.2); Lymphocytes % 35.5 % (10-50); Mean Corpuscular HGB Conc 35.1 g/dL (31.8-35.4); Mean Corpuscular Hemoglobin 30.2 pg (27.0-31.2); Mean Corpuscular Volume 86.1 fl (81-99); Mean Platelet Volume 8.1 fl (7.4-10.4); Monocytes # 0.3 K/mm3 (0.1-1.0); Monocytes % 4.8 % (1.7-9.3); Neutrophils # 3.1 K/mm3 (1.8-7.8); Neutrophils % 56.8 % (37.0-80.0); Platelet Count 241 K/mm3 (142-424); Red Cell Distribution Width 13.2 % (11.5-17.5); White Blood Count 5.5 K/mm3 (4.8-10.8)
[2023-09-16 12:59] LABS: Chloride 104 mmol/L (98-107); Potassium 3.6 mmoL/L (3.5-5.1); Sodium 140 mmol/L (136-145)
[2023-09-16 13:02] LABS: Alanine Aminotransferase 23 U/L (12-78); Albumin Level 4.9 g/dl (3.5-5.0); Albumin/Globulin Ratio 1.4 (1.1-1.8); Alkaline Phosphatase 68 U/L (38-126); Anion Gap 13.6 mEq/L (5-15); Aspartate Amino Transferase 31 U/L (14-36); Bilirubin,Total 1.1 mg/dl (0.2-1.3); Blood Urea Nitrogen 11 mg/dl (7-17); Carbon Dioxide 26 mmol/L (22.0-30.0); Creatinine Clearance Estimated 119 mL/min (50-200); Estimated Glomerular Filt Rate 73 ml/min (>60); GFR (African American) 88 ML/MIN (>60); Globulin 3.5 g/dL (1.3-3.2); Total Protein,Serum 8.4 g/dl (6.3-8.2)
[2023-09-16 13:03] LABS: Calcium 9.1 mg/dl (8.4-10.2); Glucose 96 mg/dl (74-100)
[2023-09-16 13:15] LABS: Bacteria,Urine Trace /lpf; Squamous Epithelial Cell,Urine Occasional #/hpf (0-5)
[2023-09-16 16:10] VITALS: BP 130/86; PULSE 66; RESP 17; TEMP 36.9; O2SAT 100
== END 2023-09-16 16:10 | disposition home or self-care (01) ==
PROVIDERS: Emergency Provider Emergency Medicine; PCP Emergency Medicine
DX: R10.32 Left lower quadrant pain (principal); R19.7 Diarrhea, unspecified; M54.59 Other low back pain
CPT/HCPCS: 74176; 80053; 81001; 81025; 85025; 96374; 99284; J0131

== ENCOUNTER 2023-11-18 14:07 | Emergency (ER) | payer OTHER, SELFPAY ==
[2023-11-18 15:30] VITALS: BP 156/98; PULSE 72; RESP 20; TEMP 36.8; O2SAT 99; BMI 28.8
--- NOTE | 2023-11-18 15:33 | ED_ITS ---
Discharge Plan Disposition Patient Disposition: Home, Self-Care Condition: Good Prescriptions Prescriptions: New amoxicillin [amoxicillin] 875 mg tablet 875 mg PO Q12H Qty: 20 0RF [id number]-[id number] [Bromfed DM] 2-30-10 mg/5 mL Syrup 5 ml PO Q6H PRN (Reason: Cough) Qty: 240 0RF No Action ergocalciferol (vitamin D2) [Vitamin D2] 1,250 mcg (50,000 unit) capsule 1,250 mcg PO WEEKLY clonazepam 0.5 mg tablet 0.5 mg PO TID Qty: 90 2RF gabapentin 600 mg tablet 600 mg PO QID Qty: 120 2RF cholecalciferol (vitamin D3) 25 mcg (1,000 unit) capsule See Rx Instructions .ROUTE .COMPLEX Qty: 90 0RF Dose Instruction: TAKE 1 CAPSULE BY MOUTH ONCE DAILY Rx Instructions: TAKE 1 CAPSULE BY MOUTH ONCE DAILY atorvastatin 10 mg tablet See Rx Instructions .ROUTE .COMPLEX Qty: 90 0RF Dose Instruction: TAKE 1 TABLET BY MOUTH EVERY DAY Rx Instructions: TAKE 1 TABLET BY MOUTH EVERY DAY ondansetron 4 mg tablet,disintegrating 4 mg PO Q8H PRN (Reason: nausea and vomiting) 4 Days Qty: 12 0RF famotidine [Pepcid] 40 mg tablet 40 mg PO DAILY Referrals Follow up/Referrals: Patrick Grullon DO [Primary Care Provider] - See instructions Activity Restrictions/Add. Instructions Additional Instructions/Restrictions: Drink plenty of fluids. Take tylenol or ibuprofen for pain or fever. Take the medications as directed. Follow up with your regular doctor. GO TO THE ER FOR ANY WORSENING SYMPTOMS Throw your tooth brush away and get a new one. Clinical Impressions Clinical Impression: Pharyngitis Instructions Patient Instructions: Sore Throat, DI for Pharyngitis/Tonsillopharyngitis -- Adult Discharge ED Provider: Robe Lemus [facility] [place] General Stated complaint: sore throat and, crawford, diarrhea Time Seen by Provider: 11/18/23 15:33 History of Present Illness Provider Complaint: She states that she has had a sore throat since yesterday. Both her children currently have strep throat. Related Data Home Medications Medication Instructions Recorded Confirmed famotidine 40 mg tablet (Pepcid) 40 mg PO DAILY Acid reflux 04/15/23 09/28/23 ergocalciferol (vitamin D2) 1,250 1,250 mcg PO WEEKLY 04/29/23 09/28/23 mcg (50,000 unit) capsule (Vitamin D2) Previous Rx's Medication Instructions Recorded cholecalciferol (vitamin D3) 25 See Rx Instructions .Route 08/29/23 mcg (1,000 unit) capsule .COMPLEX #90 caps atorvastatin 10 mg tablet See Rx Instructions .Route 09/12/23 .COMPLEX #90 tabs ondansetron 4 mg disintegrating 4 mg PO Q8H PRN nausea and 09/16/23 tablet vomiting 4 days #12 tabs clonazepam 0.5 mg tablet 0.5 mg PO TID mood #90 tabs 09/28/23 gabapentin 600 mg tablet 600 mg PO QID Pain #120 tabs 09/28/23 amoxicillin 875 mg tablet 875 mg PO Q12H #20 tabs 11/18/23 wlwypeymggfkhhq-dzcklcbedrwddoe-UN 5 ml PO Q6H PRN Cough #240 mL 11/18/23 2 mg-30 mg-10 mg/5 mL oral syrup (Bromfed DM) Allergies Allergy/AdvReac Type Severity Reaction Status Date / Time No Known Allergies Allergy Verified 09/28/23 14:29 [facility] Disclaimer: The information contained in this section may have been updated after the patient was seen, as this information can be updated by other users. Medical History (Updated 11/18/23 @ 16:06 by Robe Lemus APRN) Anxiety Depression History of gastroesophageal reflux (GERD) Hyperlipidemia Kidney stone Urinary tract infection Surgical History (Updated 11/18/23 @ 15:46 by Day Francois RN) History of tonsillectomy History of tympanostomy tube placement Social History Smoking Status: Never smoker second hand exposure: No alcohol intake: never substance use type: denies use current occupational status: unemployed Travel in the last 8 weeks: None household members: spouse and children housing: house current occupational exposures/hazards: No caffeine: Yes ROS Obtained: Yes All systems reviewed & no additional complaints except as documented Constitutional Constitutional: Reports chills and Reports fever(s) Eyes Eyes: Denies eye discharge ENT Ears, Nose, Mouth, and Throat: Reports as per HPI Cardiovascular Cardiovascular: Denies chest pain Respiratory Respiratory: Denies chest congestion and Reports cough Gastrointestinal Gastrointestingal: Reports nausea; Denies abdominal pain, constipation, cramping, diarrhea or vomiting Musculoskeletal Musculoskeletal: Denies arthralgias Integumentary/Breasts Skin/Breast: Denies rash Neurologic Neurologic: Denies paresthesias Physical Exam General General appearance: alert and in no apparent distress Head Head exam: atraumatic, normocephalic and normal inspection Eye Eye exam: Present normal appearance, PERRL and EOMI ENT ENT exam: Present mucous membranes moist and normal external ear exam Expanded ENT Exam TM/Canal exam: Bilateral TM: erythema and bulging Nose exam: Absent sinus tenderness Mouth exam: Present normal external inspection; Absent drooling Teeth exam: Present normal inspection Throat exam: Present tonsillar erythema, tonsillomegaly and tonsillar exudate Neck Neck exam: Present normal inspection, full ROM and trachea midline; Absent tenderness, meningismus or lymphadenopathy Chest Chest inspection: Present normal inspection and symmetric chest wall rise; Absent tenderness Respiratory Respiratory exam: Present normal lung sounds bilaterally; Absent respiratory d istress, wheezes or stridor Cardiovascular Cardiovascular exam: Present regular rate and normal rhythm; Absent systolic murmur or diastolic murmur Abdominal Exam Abdominal exam: Present soft and normal bowel sounds; Absent distention, tenderness, guarding, rebound or rigidity Extremities Exam Extremities exam: Present normal inspection and normal capillary refill; Absent calf tenderness Back Exam Back exam: Present normal inspection and full ROM; Absent tenderness, CVA tenderness (R) or CVA tenderness (L) Neurological Exam Neurological exam: Present alert, oriented X3 and CN II-XII intact Psychiatric Psychiatric exam: Present normal affect and normal mood Skin Skin exam: Present warm, dry, intact and normal color Medical Decision Making Medical Records Medical records reviewed: No I reviewed the patient's medical records. [place] Inquiry Pt receiving controlled substance: No Lab Data Lab results reviewed: Yes I reviewed the patient's lab results.
[2023-11-18 15:55] LABS: UTC Influenza A Antigen Negative (Negative); UTC Influenza B Antigen Negative (Negative); UTC Strep Screen (Rapid) Negative (Negative)
[2023-11-18 16:07] VITALS: BP 156/98; PULSE 72; RESP 20; TEMP 36.8; O2SAT 99
== END 2023-11-18 16:11 | disposition home or self-care (01) ==
PROVIDERS: Emergency Provider Nurse Practitioner Family; PCP Internal Medicine
DX: J02.9 Acute pharyngitis, unspecified (principal); R51.9 Headache, unspecified; R19.7 Diarrhea, unspecified; R05.9 Cough, unspecified; Z20.828 Contact with and (suspected) exposure to other viral communicable diseases
CPT/HCPCS: 87804; 87880; 99212; 99214; G0463

== ENCOUNTER 2023-11-24 10:10 | Outpatient (CLI) | payer OTHER, SELFPAY ==
[2023-11-24 20:57] LABS: Amphetamine/Metha Screen,Urine Negative ng/ml (<1000); Barbiturates Screen,Urine Negative ng/ml (<200); Benzodiazepines Screen,Urine Positive ng/ml (<200); Cannabinoid Screen,Urine Positive ng/ml (<50); Cocaine Screen,Urine Negative ng/ml (<300); Methadone Screen,Urine Negative ng/ml (<300); Opiate Screen,Urine Negative ng/ml (<300); Phencyclidine Screen,Urine Negative ng/ml (<25)
== END 2023-11-24 23:59 ==
LOC: LAB.DROPOF 11-25 10:46
PROVIDERS: PCP Nurse Practitioner Family; Visit Provider Nurse Practitioner Family
DX: F41.9 Anxiety disorder, unspecified (principal)
CPT/HCPCS: 80307

== ENCOUNTER 2023-12-02 19:31 | Outpatient (CLI) | payer OTHER, SELFPAY | END 2023-12-02 23:59 | LOC: LAB.DROPOF 19:31 | PROVIDERS: PCP Student in an Organized Health Care Education/Training Program; Visit Provider Student in an Organized Health Care Education/Training Program | DX: R11.2 Nausea with vomiting, unspecified (principal); Z20.828 Contact with and (suspected) exposure to other viral communicable diseases; J10.1 Influenza due to other identified influenza virus with other respiratory manifestations | CPT/HCPCS: 87635 ==

== ENCOUNTER 2024-02-12 16:34 | Emergency (ER) | payer OTHER, SELFPAY ==
[2024-02-12 16:40] VITALS: BP 136/82; PULSE 65; RESP 18; TEMP 36.7; O2SAT 99; BMI 27.6
--- NOTE | 2024-02-12 17:10 | ED_ITS ---
Discharge Plan Disposition Patient Disposition: Home, Self-Care Condition: Good Prescriptions Prescriptions: New azithromycin [Zithromax] 250 mg tablet 250 mg PO UD DOSE PK Qty: 6 0RF Rx Instructions: Take two (2) tablets today, then one (1) tablet days #2 thru #5 [id number]-qcnodnhrc-YW [Bromfed DM] 2-30-10 mg/5 mL Syrup 5 ml PO Q6H PRN (Reason: Cough) Qty: 240 0RF No Action ergocalciferol (vitamin D2) [Vitamin D2] 1,250 mcg (50,000 unit) capsule 1,250 mcg PO WEEKLY clonazepam 0.5 mg tablet 0.5 mg PO BID Qty: 30 1RF gabapentin 600 mg tablet 600 mg PO TID Qty: 90 1RF atorvastatin 10 mg tablet See Rx Instructions .ROUTE .COMPLEX Qty: 90 1RF Dose Instruction: TAKE 1 TABLET BY MOUTH EVERY DAY Rx Instructions: TAKE 1 TABLET BY MOUTH EVERY DAY cholecalciferol (vitamin D3) 25 mcg (1,000 unit) capsule See Rx Instructions .ROUTE .COMPLEX Qty: 90 2RF Dose Instruction: TAKE 1 CAPSULE BY MOUTH ONCE DAILY Rx Instructions: TAKE 1 CAPSULE BY MOUTH ONCE DAILY famotidine [Pepcid] 40 mg tablet 40 mg PO DAILY Referrals Follow up/Referrals: Patrick Orellana MD [Primary Care Provider] - See instructions Activity Restrictions/Add. Instructions Additional Instructions/Restrictions: Drink plenty of fluids. Take tylenol or ibuprofen for pain or fever. Take the medications as directed. Follow up with your regular doctor. GO TO THE ER FOR ANY WORSENING SYMPTOMS Clinical Impressions Clinical Impression: Pharyngitis, Acute viral syndrome Instructions Patient Instructions: DI for Pharyngitis/Tonsillopharyngitis -- Adult Discharge ED Provider: Robe Lemus [facility] [place] General Stated complaint: sore throat, MCCRAY diarrhea Mode of Arrival: Ambulatory Source of Information: Patient Limitations: No Limitations Time Seen by Provider: 02/12/24 17:08 Description of Symptoms (Recalled from Triage Doc. by RN): Pt's symptoms are MCCRAY, sore throat, and diarrhea. HEENT Symptoms (Recalled from RN notes): Yes Resp Symptoms (Recalled from RN notes): No Skin Symptoms (Recalled from RN notes): No MS Symptoms (Recalled from RN notes): No Functional Status (Recalled from RN notes): n/a History of Present Illness Provider Complaint: She states that for the past 3 days she has had headache, sore throat, cough and diarrhea. Related Data Home Medications Medication Instructions Recorded Confirmed famotidine 40 mg tablet (Pepcid) 40 mg PO DAILY Acid reflux 04/15/23 02/12/24 ergocalciferol (vitamin D2) 1,250 1,250 mcg PO WEEKLY 04/29/23 02/12/24 mcg (50,000 unit) capsule (Vitamin D2) Previous Rx's Medication Instructions Recorded clonazepam 0.5 mg tablet 0.5 mg PO BID mood #30 tabs 11/24/23 gabapentin 600 mg tablet 600 mg PO TID Pain #90 tabs 11/24/23 atorvastatin 10 mg tablet See Rx Instructions .Route 11/30/23 .COMPLEX #90 tabs cholecalciferol (vitamin D3) 25 See Rx Instructions .Route 02/09/24 mcg (1,000 unit) capsule .COMPLEX #90 caps azithromycin 250 mg tablet 250 mg PO UD DOSE PK #6 tabs 02/12/24 (Zithromax) fikvmsjkuzjvuas-feklqiyyonbzpgq-EE 5 ml PO Q6H PRN Cough #240 mL 02/12/24 2 mg-30 mg-10 mg/5 mL oral syrup (Bromfed DM) Allergies Allergy/AdvReac Type Severity Reaction Status Date / Time No Known Allergies Allergy Verified 02/12/24 17:02 Worker's Comp Is this a Worker's Comp case?: No [facility] [place] Disclaimer: The information contained in this section may have been updated after the patient was seen, as this information can be updated by other users. Medical History Depression History of gastroesophageal reflux (GERD) Hyperlipidemia Kidney stone Urinary tract infection Surgical History History of tonsillectomy History of tympanostomy tube placement Social History Smoking Status: Never smoker second hand exposure: No alcohol intake: never substance use type: denies use current occupational status: unemployed Travel in the last 8 weeks: None household members: spouse and children housing: house current occupational exposures/hazards: No caffeine: Yes ROS Obtained: Yes All systems reviewed & no additional complaints except as documented Constitutional Constitutional: Reports chills and Reports fever(s) Eyes Eyes: Denies eye discharge ENT Ears, Nose, Mouth, and Throat: Reports as per HPI Cardiovascular Cardiovascular: Denies chest pain Respiratory Respiratory: Denies chest congestion and Reports cough Gastrointestinal Gastrointestingal: Reports nausea; Denies abdominal pain, constipation, cramping, diarrhea or vomiting Musculoskeletal Musculoskeletal: Denies arthralgias Integumentary/Breasts Skin/Breast: Denies rash Neurologic Neurologic: Denies paresthesias Physical Exam General General appearance: alert and in no apparent distress Eye Eye exam: Present normal appearance, PERRL and EOMI ENT ENT exam: Present mucous membranes moist and normal external ear exam Expanded ENT Exam External ear exam: Present normal external inspection TM/Canal exam: Bilateral TM: erythema and bulging Nose exam: Absent sinus tenderness Nasal speculum exam: Bilateral: normal Mouth exam: Present normal external inspection; Absent drooling Teeth exam: Present normal inspection Throat exam: Present tonsillar erythema and tonsillomegaly Neck Neck exam: Present normal inspection, full ROM and trachea midline; Absent tenderness, lymphadenopathy or thyromegaly Chest Chest inspection: Present normal inspection and symmetric chest wall rise; Absent tenderness or rash Respiratory Respiratory exam: Present normal lung sounds bilaterally; Absent respiratory distress, wheezes, stridor or accessory muscle use Cardiovascular Cardiovascular exam: Present regular rate, normal rhythm and normal heart sounds Abdominal Exam Abdominal exam: Present soft; Absent distention, tenderness, guarding, rebound or rigidity Extremities Exam Extremities exam: Present normal inspection, full ROM and normal capillary refill; Absent tenderness or calf tenderness Back Exam Back exam: Present normal inspection and full ROM; Absent tenderness Neurological Exam Neurological exam: Present alert and oriented X3 Psychiatric Psychiatric exam: Present normal affect and normal mood Skin Skin exam: Present warm, dry, intact and normal color Lymphatic Lymphatic Findings: no adenopathy Medical Decision Making Medical Records Medical records reviewed: No I reviewed the patient's medical records. [place] Inquiry Pt receiving controlled substance: No Vital Signs: 02/12/24 16:40 Temperature 98.0 F Temperature Source Oral Pulse Rate [Right Radial] 65 Respiratory Rate 18 Blood Pressure [Right Arm] 136/82 Blood Pressure Mean [Right Arm] 100 Blood Pressure Source [Right Arm] Automatic Cuff Blood Pressure Position [Right Arm] Sitting 02 Sat by Pulse Oximetry 99 Oxygen Delivery Method Room Air Lab Data Lab results reviewed: Yes I reviewed the patient's lab results.
[2024-02-12 17:25] LABS: UTC Strep Screen (Rapid) Negative (Negative)
[2024-02-12 17:40] VITALS: BP 136/82; PULSE 65; RESP 18; TEMP 36.7; O2SAT 99
== END 2024-02-12 17:40 | disposition home or self-care (01) ==
PROVIDERS: Emergency Provider Nurse Practitioner Family; PCP Family Medicine
DX: J02.9 Acute pharyngitis, unspecified (principal); R51.9 Headache, unspecified; R05.9 Cough, unspecified; R19.7 Diarrhea, unspecified; B34.9 Viral infection, unspecified; K21.9 Gastro-esophageal reflux disease without esophagitis; E78.5 Hyperlipidemia, unspecified
CPT/HCPCS: 87635; 87880; 99212; 99214; G0463